=== PATIENT | male | born 1995 | race Caucasian/White ===

== ENCOUNTER 2021-01-22 10:14 | Emergency (ER) | payer OTHER, SELFPAY ==
[2021-01-22 10:14] VITALS: BP 131/93; BP 135/89; PULSE 64; PULSE 69; RESP 12; RESP 23; TEMP 37.2; O2SAT 98; BMI 31.2
--- NOTE | 2021-01-22 10:15 | NURSING ---
10 MIN ETA. [facility] IS COMING GROUND WITH A SQUAD
--- NOTE | 2021-01-22 10:16 | NURSING ---
ACCEPTED AT [facility] BY DR LELO GARCIA
[2021-01-22] MEDS: fentaNYL 100 MCG/2 ML Ampul 50 MCG IV (10:31)
--- NOTE | 2021-01-22 10:36 | EX.ED.GENINJ ---
HPI History of Present Illness Chief Complaint: Trauma Narrative Narrative: Patient presents after falling 16 to 20 feet onto concrete. 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 He fell face forward and onto his right side onto concrete. No reported loss of consciousness. He sustained injury to his right wrist, right thigh, and face. In route, he received a total of 100 mcg of fentanyl for pain. EMS also noted blood coming from both of his ears, and missing teeth, but he has partial dentures. [facility] Medical History History of fracture of clavicle Home Medications NK 01/22/21 [History Last Taken Unknown] Allergy/AdvReac Type Severity Reaction Status Date / Time No Known Allergies Allergy Verified 01/22/21 10:19 Social History Smoking Status: Unknown if ever smoked ROS ROS ED ROS Narrative Constitutional: No fever, no chills. HEENT: No sore throat. No neck pain. No loss of vision. No rhinorrhea. Decreased hearing. Chin pain. Cardiovascular: No chest pain. No palpitations. No pedal edema. Respiratory: No cough, no shortness of breath. Abdominal: No abdominal pain. No nausea. No vomiting. Genitourinary: No dysuria. No hematuria. Musculoskeletal: Right wrist pain. Right thigh pain. Neurologic: No headaches. No dizziness. No lightheadedness. Skin: No rash. No change in color. Psychiatric: No depression. No anxiety. EXAM Physical Exam Narrative Exam Narrative: Afebrile. Vital signs noted. GCS 15. ABCs intact. HEENT: Normocephalic. Atraumatic. PERRL, EOMI. Neck soft and supple. No point tenderness or step off. Left TM partially obscured by blood, right TM completely obscured by blood. No step-off on neck. +2 cm chin laceration. Cardiovascular: Regular rate and rhythm. No murmurs, rubs, or gallops appreciated. Respiratory: No tachypnea. Lungs clear to auscultation bilaterally. Gastrointestinal: Abdomen soft, nontender, with normoactive bowel sounds. No rebound or guarding. Neurological: Awake. Alert. Mentating properly. Nonfocal, nonlateralizing. Skin: No rash. Normal color. No pallor. Musculoskeletal: No pedal edema. Right upper extremity in Dylan splint, good capillary refill. Palpable radial pulse. Noted deformity right thigh. Right lower extremity held in external rotation. Palpable dorsalis pedis pulse. Good capillary refill. Const Vital Signs: 01/22/21 10:14 01/22/21 10:25 Temperature 98.9 F Temperature Source Temporal Pulse Rate 69 Respiratory Rate 23 H Respiratory Effort Normal Respiratory Depth Normal Respiratory Pattern Normal Blood Pressure 135/89 H Blood Pressure Mean 104 Pulse Ox 98 Oxygen Delivery Method Room Air MDM MDM MDM Narrative Medical decision making narrative: Patient was triaged, seen and examined. He has already been accepted at [facility] by Dr. Guerrero in the ER. I was able to speak to Dr. Vences. He will be transferred there immediately for trauma services to the ED. He was administered 50 mcg of fentanyl for analgesia here. Disposition is transferred in stable condition. Discharge Plan Triage Chief Complaint: Trauma ED Provider: Lorenzo Browning Dx/Rx/DC Orders Clinical Impression: Multiple trauma, Femur fracture, right, Fracture of wrist, Chin laceration, Head injury Prescriptions: No Action NK RF: 0 Primary Care Provider: Care Physician,No Primary Referrals: Care Physician,No Primary [Primary Care Provider] - Disposition Disposition: Acute Care Hospital Discharge Location: [facility]
--- NOTE | 2021-01-22 10:58 | CM.ED ---
SW Note Referral Source: Case Find due to Trauma Referral Reason: Trauma SW met with Nelson Cherry, patient's father. He reports he works close to the patient's work and was advised that patient had fallen 16 feet. Nelson called his and patient's and they were on the way to [facility] ED. SW advised that patient is being transferred to [facility]. SW spoke to [facility] who advised that patient only can be transported and NO other family. SW encouraged patient's father to contact ride regarding him accompanying them to [facility]. SW provided patient's father with [facility] map. SW provided emotional support to patient's father and family. SW remains available if needs arise. Plan: Transfer to [facility] Bridgette GARCIA
[2021-01-22 11:01] VITALS: BP 119/74; PULSE 64; RESP 18; O2SAT 100
== END 2021-01-22 11:03 | disposition short-term general hospital (02) ==
PROVIDERS: Emergency Provider Emergency Medicine
DX: S72.91XA Unspecified fracture of right femur, initial encounter for closed fracture (principal); S62.101A Fracture of unspecified carpal bone, right wrist, initial encounter for closed fracture; S01.81XA Laceration without foreign body of other part of head, initial encounter; W17.89XA Other fall from one level to another, initial encounter
CPT/HCPCS: 96374; 99285; J7030; A4216

== ENCOUNTER 2024-11-05 14:05 | Emergency (ER) | payer OTHER, SELFPAY ==
[2024-11-05 14:06] VITALS: BP 134/85; PULSE 82; RESP 18; TEMP 37.2; O2SAT 98; BMI 27.1
[2024-11-05 14:10] VITALS: BP 134/85; PULSE 82; RESP 18; TEMP 37.2; O2SAT 98
--- NOTE | 2024-11-05 14:16 | EDS_ITS ---
HPI History of Present Illness Chief Complaint: Wound Check Detail of Chief Complaint: Wound over MCP joint dorsal surface right thumb, concern for infection Informant: patient Onset/Context/Timing Onset: - (Was carving a deer on Wednesday. Has small wound to dorsal surface right hand MCP joint of the right thumb) Context: Gradual Onset Timing: Continuous Quality: Redness and red streak to the proximal medial Location: right arm, from the MCP joint to the medial right arm Current Severity: Mild Maximum Severity: Mild Worsened by: Wound Relieved by: Nothing Associated Symptoms Associated Symptoms: None Narrative Narrative: Patient is a 29-year-old [id number] male. He found a 8 point varner. He went to remove the head. He sustained a laceration dorsal surface right thumb over the MCP joint. He denies fever, chills or night sweats. He denies paresthesia or anesthesia. He has no history rheumatic fever, heart murmur murmur or mitral valve prolapse. He is on no immunosuppressive medication. [id number], he is on no medicines and has no allergies to antibiotics. Prior similar symptoms: No Recent Illness/Hospitalization: No PFSH PFS Medical History History of fracture of clavicle Home Medications ?Medication ?Instructions ?Recorded ?Last Taken ?Type clindamycin HCl 300 mg capsule 300 mg PO Q6H #28 CAPSU LES 11/05/24 Unknown Rx (Cleocin HCl) Allergy/AdvReac Type Severity Reaction Status Date / Time No Known Allergies Allergy Verified 11/05/24 14:20 Surgical History no surgical history no surgical history Social History Smoking Status: Unknown if ever smoked ROS ROS ED Constitutional Constitutional ED: Denies chills, fever(s), subjective or sweats Cardiovascular Cardiovascular: Denies chest pain or palpitations Respiratory/Chest Respiratory/Chest: Denies cough, dyspnea or dyspnea on exertion Gastrointestinal Gastrointestinal: Denies nausea or vomiting Musculoskeletal Musculoskeletal: Denies arthralgias, myalgias or neck pain Integumentary Reports rash Neurologic Neurologic: Denies paresthesias or weakness Hematologic/Lymphatic Hematologic/Lymphatic: Denies easy bruising EXAM Physical Exam Const Vital Signs: 11/05/24 14:06 11/05/24 14:10 Temperature 99 F 99 F Temperature Source Oral Oral Pulse Rate 82 82 Respiratory Rate 18 18 Blood Pressure 134/85 H 134/85 H Blood Pressure Mean 101 101 Pulse Ox 98 98 Oxygen Delivery Method Room Air Room Air Positive well nourished and well developed Constitutional Narrative: Pleasant 29-year-old male appears in no distress. Blood pressure slightly elevated. General Appearance ED: well developed; Negative for cyanotic or diaphoretic HEENT HEENT Narrative: Head is atraumatic and normocephalic. Ears normal. Nares patent. Eyes PERRL and EOMs intact bilaterally General Eye ED: Negative for pale conjunctiva or scleral icterus Neck no lymphadenopathy, supple and no JVD Resp normal respiratory effort and clear to auscultation bilaterally Cardio regular rate, regular rhythm, S1 normal heart sound, S2 normal heart sound and no murmurs Extremity Negative for normal to inspection Extremity Narrative: Patient has a 1 cm superficial laceration dorsal surface right thumb over the MCP joint. There is a nickel size area of erythema and warmth. There is no fluctuance. Unable to express any purulent material from the wound. There is an lymphangitic streak at is on the radial volar side of the forearm and when it approaches the antecubital fossa there are 3 streaks that are noted. The streaks do not go to the axilla. There is no axillary lymphadenopathy. Median, radial and ulnar function intact. Neuro oriented x3 and CN's II-XII intact bilaterally Sensorium / Orientation: alert Psych mental status grossly normal Skin Skin Narrative: Cellulitis and lymphangitis as previously described. MDM MDM MDM Narrative Medical decision making narrative: Suspect this is a streptococcal infection. Will obtain CBC and BMP to assess white count differential and BMP to assess glucose and renal function. Suspect patient will be a candidate for outpatient treatment unless his laboratory studies return abnormal. History & Record Review Additional record(s) reviewed:: Prior outpatient record (May 2023 outpatient note authored by Nirav Murry. Patient was seen for a sprain left foot. There are no other records available.) Lab Data Attestation: I reviewed the patient's lab results. Lab results narrative: CBC is normal. Comprehensive metabolic panel with slight elevation of glucose 106. This is unremarkable. Labs: Laboratory Results - last 24 hr 11/05/24 14:23 WBC 10.1 RBC 5.07 Hgb 15.4 Hct 44.0 MCV 86.8 MCH 30.4 MCHC 35.0 RDW Std Deviation 38.0 RDW Coeff of Yisel 11.9 Plt Count 123 L MPV 9.9 Immature Gran % (Auto) 0.500 Neut % (Auto) 74.2 H Lymph % (Auto) 12.5 L [place] % (Auto) 8.7 Eos % (Auto) 3.5 Baso % (Auto) 0.6 Absolute Neuts (auto) 7.5 Absolute Lymphs (auto) 1.26 Nucleated RBC % 0 Sodium 140 Potassium 3.9 Chloride 103 Carbon Dioxide 25.0 Anion Gap 11 BUN 16 Creatinine 0.96 Estim Creat Clear Calc 126.00 Est GFR (MDRD) Non-Af 108 BUN/Creatinine Ratio 16.5 Glucose 106 H Calcium 9.2 Total Bilirubin 0.86 AST 21 ALT 22 Alkaline Phosphatase 71 Total Protein 7.0 Albumin 4.4 Globulin 2.6 Albumin/Globulin Ratio 1.7 Treatment and Re-Evaluation :: Since patient's vitals are unremarkable white count is normal there is no evidence of renal dysfunction will place on antibiotics and patient is approp riate for outpatient treatment follow-up Discharge Plan Triage Chief Complaint: Wound Check ED Provider: Leo Deluca Dx/Rx/DC Orders Clinical Impression: Cellulitis of hand, left, Acute lymphangitis of left upper limb, Elevated blood-pressure reading without diagnosis of hypertension Instructions: ED Cellulitis, ED Hypertension, To Be Confirmed Prescriptions: New clindamycin HCl [Cleocin HCl] 300 mg capsule 300 mg PO Q6H Qty: 28 0RF Primary Care Provider: Carol Santana Referrals: Care Physician,No Primary [Non-Staff, Medical] Carol Santana PA [Primary Care Provider, Family Practice] - 2 Days for wound check Activity Restrictions/Additional Instructions: 1. Take your first dose of antibiotic this evening before bedtime. 2. If you develop temperature greater than 100, shaking chills or drainage from the wound return to the emergency department 3. Your blood pressure is slightly elevated. You should have this rechecked within a week or 2 Print Language: Tamazight Disposition Disposition: Home, Self Care
[2024-11-05] MEDS: Ampicillin/Sulbactam 3 GM in 0.9% Normal Saline (100mL MB+) 100 ML IV (14:31)
[2024-11-05 15:00] LABS: Hematocrit 44.0 % (40-54); Hemoglobin 15.4 g/dL (13.0-16.5); Immature Granulocytes Count 0.050 X10^3/uL (0.0-0.0); Mean Corp Hgb Conc 35.0 g/dL (32-36); Mean Corpuscular Volume 86.8 fL (80-94); Mean Platelet Vol. 9.9 fl (6.2-12.0); NRBC Flagged by Analyzer 0 % (0-5); Platelet Count 123 K/mm3 (150-450); RBC Distribution Width CV 11.9 % (11.6-14.6); RBC Distribution Width SD 38.0 fl (35.1-43.9); Red Blood Count 5.07 M/mm3 (4.6-6.2); White Blood Count 10.1 K/mm3 (4.4-11.0)
[2024-11-05 15:54] LABS: AST(SGOT) 21 U/L (<=37); Alanine Aminotransfer ALT/SGPT 22 U/L (<=46); Albumin, Serum 4.4 g/dL (3.5-5.0); Alkaline Phosphatase 71 U/L (40-129); Anion Gap 11 (5-15); BUN 16 mg/dL (4-19); BUN/Creat Ratio 16.5 RATIO (10-20); Calcium,Total 9.2 mg/dL (7.6-11.0); Carbon Dioxide 25.0 mmol/L (21.0-32.0); Chloride 103 mmol/L (98-108); Estimated Creatinine Clearance 126.00 ml/min (50-250); Globulin 2.6 g/dL (2.2-4.2); Glucose 106 mg/dL (70-99); Potassium 3.9 mmol/L (3.3-5.1)
[2024-11-05 16:17] VITALS: BP 116/68; PULSE 69; RESP 16; RESP 18; TEMP 36.7; O2SAT 97
--- OUTSIDE RECORDS SUMMARY | 2024-11-05 16:48 | XMS RPT_ITS | CCD ---
Author Organization [facility] Care Team Providers Care Medical Director Occupational Health Name Role Phone Unavailable Primary Care Provider FAVIOLA Bergeron Attending Unavailable FAVIOLA PALMER Referring Unavailable FAVIOLA PALMER Referring Unavailable FAVIOLA PALMER Attending Unavailable FAVIOLA PALMER Attending Unavailable FAVIOLA PALMER Referring Unavailable FAVIOLA PALMER Admitting Unavailable FAVIOLA PALMER Attending Unavailable FAVIOLA PALMER Referring Unavailable FAVIOLA PALMER Attending Unavailable MARIAH FAIRBANKS Referring Unavailable FAVIOLA PALMER Attending Unavailable FAVIOLA PALMER Referring Unavailable FAVIOLA PALMER Attending Unavailable FAVIOLA PALMER Attending Unavailable Unavailable Primary Care Provider UnavailMELITON Garcia Attending Unavailable HÉCTOR ARROYO Referring Unavailable HÉCTOR ARROYO Referring Unavailable Medications Current Medications Medication Drug Class(es) Dates Sig (Normalized) Sig (Original) doxycycline hyclate 100 mg oral capsule (2 sources) Tetracycline-clas s Drug Start: 02-12-2022 End: 02-26-2022 take 1 capsule by mouth twice daily doxycycline hyclate (VIBRAMYCIN) 100 mg capsule Take 1 capsule by mouth twice daily for 14 days. 28 capsule 0 02/12/2022 02/26/2022 Active Start: 10-28-2021 End: 11-07-2021 take 1 tablet by mouth twice daily doxycycline (VIBRA-TABS) 100 mg tablet Take 1 tablet by mouth twice daily for 10 days. 20 tablet 0 10/28/2021 11/07/2021 Active Comment on above: Take 1 tablet by carissa th twice daily for 10 days. Take 1 capsule by mo [facility] twice daily for 14 days. predniSONE 20 mg oral tablet (1 source) Start: 05-23-2024 End: 06-07-2024 take 1 tablet by mouth twice daily predniSONE (DELTASONE) 20 mg tablet Take 1 tablet by mouth two times a day for 15 days. 10 tablet 2 05/23/2024 06/07/2024 Active Completed/Discontinued Medications Medication Drug Class(es) Dates Sig (Normalized) Sig (Original) acetaminophen 325 mg / oxyCODONE hydrochloride 5 mg oral tablet (1 source) Opioid Agonist Start: 02-12-2022 End: 02-15-2022 take 1 tablet by mouth every six hours as needed for pain oxyCODONE-acetamin ophen (PERCOCET) 5-325 mg tablet Indications: Hardware complicating wound infection, initial encounter ([facility]) Take 1 tablet by mouth every 6 hours as needed for pain for up to 3 days. 12 tablet 0 02/12/2022 02/15/2022 Comment on above: Take 1 tablet by carissa th every 6 hours as needed for pain for up to 3 days. aspirin 325 mg oral tablet (7 sources) Platelet Aggregation Inhibitor, Nonsteroidal Anti-inflammatory Drug Start: 01-25-2021 End: 02-02-2022 take 1 tablet by mouth twice daily aspirin 325 mg tablet Take 1 tablet by mouth twice daily for 21 days. 42 tablet 0 01/25/2021 02/02/2022 Discontinued (Patient chooses alternative therapy) Comment on above: Take 1 tablet by carissa th twice daily for 21 days. Walker misc (16 sources) Start: 01-25-2021 Walker misc 1 wheeled walker with bilateral elbow platforms 1 Each 0 01/25/2021 Active Start: 01-24-2021 Walker misc 1 wheeled walker with bilateral elbow platforms 1 Each 0 01/24/2021 Active Comment on above: 1 wheeled walker wit h bilateral elbow platforms Problems Active Problems Problem Classification Problem Date Documented Da te Episodic/Chronic Complication of device; implant or graft (4 sources) Bone fixation device infection; Translations: [Infection and inflammatory reaction due to other internal orthopedic prosthetic devices, implants and grafts, initial encounter] Onset: 02-02-2022 Episodic Osteoarthritis (2 sources) Arthritis of knee; Translations: [Unilateral primary osteoarthritis, right knee] 05-23-2024 Chronic Other non-traumatic joint disorders (4 sources) Pain in right knee; Translations: [Pain in joint, lower leg] Onset: 05-23-2024 05-18-2024 Episodic Other non-traumatic joint disorders (1 source) Effusion of right knee joint; Translations: [Effusion, right knee] 05-23-2024 Episodic Substance-related disorders (15 sources) Nicotine dependence; Translations: [Nicotine dependence, unspecified, uncomplicated] Onset: 01-23-2021 01-25-2021 Chronic Past or Other Problems Problem Classification Problem Date Documented Date Episodic/Chronic E Codes: Fall (6 sources) Injury of unknown intent due to fall from height; Translations: [Other fall from one level to another, initial encounter] Onset: 01-22-2021 Resolved: 01-25-2021 01-25-2021 Episodic Fracture of lower limb (16 sources) Closed fracture of shaft of femur; Translations: [Other fracture of shaft of right femur, subsequent encounter for closed fracture with routine healing] Onset: 01-22-2021 Resolved: 01-25-2021 Episodic Fracture of upper limb (10 sources) Open fracture of distal end of radius; Translations: [Other intraarticular fracture of lower end of right radius, subsequent encounter for open fracture type I or II with routine healing] Onset: 01-22-2021 Resolved: 01-25-2021 Episodic Joint disorders and dislocations; trauma-related (3 sources) Dislocation of temporomandibular joint; Translations: [Dislocation of jaw, unspecified side, initial encounter] Onset: 01-22-2021 Resolved: 03-05-2021 03-05-2021 Episodic Open wounds of head; neck; and trunk (3 sources) Facial laceration ; Translations: [Laceration without foreign body of other part of head, initial encounter] Onset: 01-22-2021 Resolved: 01-25-2021 01-25-2021 Episodic Other ear and sense organ disorders (3 sources) Blood in ear canal; Translations: [Otorrhagia, bilateral] Onset: 01-22-2021 Resolved: 01-25-2021 01-25-2021 Episodic Skull and face fractures (20 sources) Closed fracture of condylar process of right mandible; Translations: [Fracture of condylar process of right mandible, initial encounter for closed fracture] Onset: 01-22-2021 01-25-2021 Episodic Unclassified (3 sources) Acute pain of right knee 05-18-2024 Results Test Name Value Interpretation Reference Range Facil ity CNOVon 05-23-2024 CNOV Office Visit (FRWS ) MILKA ZAMUDIO ([id number]) 1995 M Date Time Provider Department 05/23/24 1:30 PM [facility] During your visit today, we recorded the following information about you: Funmi Saavedra MA 05/23/2024 1:47 PM Signed Patient presents with: Right Knee Pain: Referred by Héctor COLEMAN ROOMING INTAKE FLOWSHEET DATA Pain Pain Level: 1 Pain Location: Knee-Right Description: Dull Duration Amount of Time: 5 Duration Units: Days Frequency: Intermittent Intervention/Comfort measure: Medication Meliton Carlos V, DO 05/23/2024 1:47 PM Signed Subjective The patient is a 29-year-old male presenting for right knee pain and swelling. Right Knee Pain and Swelling: - Reports swelling and pain in the right knee, limiting flexion to approximately 90 degrees. - Noticed swelling after kneeling on the right knee during work on ; typically bears weight on the left knee. - Describes a sensation of pressure when attempting to bend the knee. - Denies pain with extension or varus/valgus stress. - Denies pain over the anterior joint line with palpation. - Pain and a pop sensation occur when flexing the knee to 90 degrees. - Has a knee brace used post-injury to keep the leg straight. 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 Right Knee Injury: - Sustained a fall from 16 feet onto concrete on 01/22/2022, resulting in a shattered patella (in 7 pieces), fractured femur, wrist, and jaw. - Treated by Dr. Palmer in [place]. Musculoskeletal: (+) right knee swelling, (+) right knee pain Objective There were no vitals taken for this visit. General: No acute distress. MSK/Ext: Right knee effusion, loss of patellar definition, scar present, no pain with extension, varus or valgus stress, or anterior joint line palpation; pain and crepitus at 90 degrees of flexion. Imaging - X-ray of the Right Knee: Hardware in place and intact; joint space is well maintained. Arthritic changes noted under the patella consistent with patellofemoral arthritis. 1. Acute pain of right knee (M25.561) 2. Effusion of right knee (M25.461) 3. Patellofemoral arthritis of right knee (M17.11) 4. Post-traumatic osteoarthritis of right knee (M17.31) - Right knee effusion with limited flexion to 90 degrees and palpable crepitus on exam. - Recent x-rays reviewed, showing well-positioned hardware and preserved joint space, but significant arthritic changes under the patella. - Discussed pathophysiology of effusion and arthritis, including synovial fluid overproduction due to joint irritation. - Prescribed prednisone 20 mg orally twice daily for 5 days to reduce inflammation and pain. - Provided a compression wrap for immediate use and recommended purchasing a knee compression sleeve for ongoing support during activities. - Advised monitoring for signs of infection, including erythema, increased warmth, and severe pain, and to seek immediate medical attention if these occur. - Patient understands and agrees with the treatment plan. Attestation The patient consented to the use of Continuent software for draft documentation of the visit consistent with [facility]?s Notice of Privacy Practices. Referring Provider: HÉCTOR ARROYO [[id number]] Allergies As of Date: 05/23/2024 (No Known Allergies) Date Reviewed: 05/23/2024 Reviewed by: Funmi Saavedra MA - Fully Assessed Reason for Visit: Right Knee Pain [1209] Cmt: Referred by Héctor Arroyo Primary Visit Diagnosis:Effusion of right knee [M25.461] Other Visit Diagnoses:Acute pain of right knee [M25.561] Patellofemoral arthritis of right knee [M17.11] Post-traumatic osteoarthritis of right knee [M17.31] Order(s):CONSULT PANEL TO ORTHOPAEDICS [[id number]] Order #: [id number]: 1 predniSONE (DELTASONE) 20 mg tabletTake 1 tablet by mouth two times a day for 15 days.Disp: 10 tabletRfl: 2 Prescriptions as of 05/23/2024 - predniSONE (DELTASONE) 20 mg tablet Take 1 tablet by mouth two times a day for 15 days. Facility-Administered Medications as of 05/23/2024 - midazolam (PF) injection (VERSED) - fentaNYL 50 mcg/mL injection (SUBLIMAZE) Problem List As Of Date 05/23/2024 Noted Resolved Injury resulting from fall from height [W17.89X*01/22/2021 01/25/2021 Closed fracture of right condylar process of ma*01/22/2021 Closed fracture of maxillary sinus (HCC) [S02.4*01/22/2021 Closed dislocation of mandible [S03.00XA] 01/22/2021 03/05/2021 Closed displaced comminuted fracture of shaft o*01/22/2021 01/25/2021 Closed comminuted fracture of right patella [S8*01/22/2021 01/25/2021 Open fracture of distal end of radius [S52.509B]01/22/2021 01/25/2021 Closed nondisplaced fracture of styloid process*01/22/2021 01/25/2021 Blood in ear canal, bilateral [H92.23] 01/22/2021 01/25/2021 Facial laceration [S01.81XA] 01/22/2021 01/25/2021 Fall [W19.XXXA] 01/23/20 (more content not included)... Normal [facility] CNOVon 05-18-2024 CNOV Office Visit (WSTR ) MILKA ZAMUDIO ([id number]) 1995 M Date Time Provider Department 05/18/24 7:30 PM [facility] During your visit today, we recorded the following information about you: Pulse Respiration Blood pressure Weight 98/minute 16/minute 118/70 91.8 kg Héctor Arroyo APRN.CNP 05/18/2024 8:05 PM Signed This note was created using NoteWriter. Subjective Milka Scottim is a 29 year old male. HPI Little over 3 years ago patient apparently fell about 16 feet shattering his right patella breaking other multiple bones. 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 As the day progressed he began to notice increasing pain throughout the right knee. Patient otherwise denies any strain or trauma. He does note some swelling around the right knee. Review of Systems As above Objective BP 118/70 Pulse 98 Resp 16 Wt 91.8 kg (202 lb 6.1 oz) BMI 27.45 kg/m? Physical Exam Vitals and nursing note reviewed. Constitutional: General: He is not in acute distress. Appearance: Normal appearance. He is not ill-appearing. HENT: Head: Normocephalic. Pulmonary: Effort: Pulmonary effort is normal. Musculoskeletal: Cervical back: Normal range of motion. Comments: Limited range of motion of right knee due to pain. Diffuse swelling and pain noted around the right knee. No obvious deformities noted Skin: General: Skin is warm and dry. Neurological: General: No focal deficit present. Mental Status: He is alert. Psychiatric: Mood and Affect: Mood normal. Behavior: Behavior normal. Assessment and Plan ASSESSMENT/PLAN: 1. Acute pain of right knee - ICD9: 719.46, ICD10: M25.561 Initial read of the x-ray by myself shows no acute abnormalities. Patient will use his home knee brace as needed for comfort. He was given follow-up with orthopedics if symptoms do not improve. - XR KNEE GENERAL 4V AP BOTH/PA BOTH/LAT/MERC RIGHT - CONSULT PANEL TO ORTHOPAEDICS Héctor Arroyo APRN.SENIOR DATA ANALYST Allergies As of Date: 05/18/2024 (No Known Allergies) Date Reviewed: 05/18/2024 Reviewed by: Héctor Arroyo APRN.SENIOR DATA ANALYST - Fully Assessed Reason for Visit: knee pain and swelling, r [Other] Primary Visit Diagnosis:Acute pain of right knee [M25.561] Order(s):XR KNEE GENERAL 4V AP BOTH/PA BOTH/LAT/MERC RIGHT [[id number]] Order #: [id number] FUTURE CONSULT PANEL TO ORTHOPAEDICS [[id number]] Order #: [id number]: 1 FUTURE Facility-Administered Medications as of 05/18/2024 - midazolam (PF) injection (VERSED) - fentaNYL 50 mcg/mL injection (SUBLIMAZE) Problem List As Of Date 05/18/2024 Noted Resolved Injury resulting from fall from height [W17.89X*01/22/2021 01/25/2021 Closed fracture of right condylar process of ma*01/22/2021 Closed fracture of maxillary sinus (HCC) [S02.4*01/22/2021 Closed dislocation of mandible [S03.00XA] 01/22/2021 03/05/2021 Closed displaced comminuted fracture of shaft o*01/22/2021 01/25/2021 Closed comminuted fracture of right patella [S8*01/22/2021 01/25/2021 Open fracture of distal end of radius [S52.509B]01/22/2021 01/25/2021 Closed nondisplaced fracture of styloid process*01/22/2021 01/25/2021 Blood in ear canal, bilateral [H92.23] 01/22/2021 01/25/2021 Facial laceration [S01.81XA] 01/22/2021 01/25/2021 Fall [W19.XXXA] 01/22/2021 01/25/2021 Nicotine use disorder, F17.2 [F17.200] 01/23/2021 Encounter Status:Closed by HÉCTOR ARROYO on 05/18/24 Normal [facility] XR KNEE 4V AP/PA BOTH+LAT/ME R RTon 05-18-2024 XR KNEE 4V AP/PA BOTH+LAT/SAÚL RT * * *Final Report* * * DATE OF EXAM: May 18 2024 7:57PM WOX 5203 - XR KNEE 4V AP/PA BOTH+LAT/SAÚL RT / PROCEDURE REASON: Acute pain of right knee * * * * Physician Interpretation * * * * BILATERAL KNEE X-RAY SERIES HISTORY: Acute pain of right knee TECHNIQUE: 4 views of the right knee, 3 views of the left knee COMPARISON: 02/04/2021 RESULT: No acute fracture, dislocation or destructive changes. There are some new mild degenerative changes of the patellofemoral joint. Remote right patellar fracture. Interval removal of the hardware in the patella. Partially imaged intramedullary priyanka and screw fixation of a remote distal right femoral diaphyseal fracture. No hardware complication in the visualized hardware. A few tiny punctate metallic densities project over the right infrapatellar soft tissues. Moderate right knee joint effusion. IMPRESSION: No acute fracture or dislocation. Alarm Operator: [facility] Transcribe Date/Time: May 18 2024 9:19P Dictated by : DONNA ASKEW MD This examination was interpreted and the report reviewed and electronically signed by: DONNA ASKEW MD on May 18 2024 9:23PM EST [id number] Normal [facility] XR Knee - right 4 Viewson IMPRESSION: No acute fracture or dislocation. Alarm Operator: [facility] Transcribe Date/Time: May 18 2024 9:19P Dictated by : DONNA ASKEW MD This examination was interpreted and the report reviewed and electronically signed by: DONNA ASKEW MD on May 18 2024 9:23PM EST DIVISION OF RADIOLOGY * * *Final Report* * * DATE OF EXAM: May 18 2024 7:57PM WOX 5203 - XR KNEE 4V AP/PA BOTH+LAT/SAÚL RT / PROCEDURE REASON: Acute pain of right knee * * * * Physician Interpretation * * * * BILATERAL KNEE X-RAY SERIES HISTORY: Acute pain of right knee TECHNIQUE: 4 views of the right knee, 3 views of the left knee COMPARISON: 02/04/2021 RESULT: No acute fracture, dislocation or destructive changes. There are some new mild degenerative changes of the patellofemoral joint. Remote right patellar fracture. Interval removal of the hardware in the patella. Partially imaged intramedullary priyanka and screw fixation of a remote distal right femoral diaphyseal fracture. No hardware complication in the visualized hardware. A few tiny punctate metallic densities project over the right infrapatellar soft tissues. Moderate right knee joint effusion. DIVISION OF RADIOLOGY Provider, [facility] - 05/18/2024 * * *Final Report* * * DATE OF EXAM: May 18 2024 7:57PM WOX 5203 - XR KNEE 4V AP/PA BOTH+LAT/SAÚL RT / PROCEDURE REASON: Acute pain of right knee * * * * Physician Interpretation * * * * BILATERAL KNEE X-RAY SERIES HISTORY: Acute pain of right knee TECHNIQUE: 4 views of the right knee, 3 views of the left knee COMPARISON: 02/04/2021 RESULT: No acute fracture, dislocation or destructive changes. There are some new mild degenerative changes of the patellofemoral joint. Remote right patellar fracture. Interval removal of the hardware in the patella. Partially imaged intramedullary priyanka and screw fixation of a remote distal right femoral diaphyseal fracture. No hardware complication in the visualized hardware. A few tiny punctate metallic densities project over the right infrapatellar soft tissues. Moderate right knee joint effusion. IMPRESSION IMPRESSION: No acute fracture or dislocation. Alarm Operator: [facility] Transcribe Date/Time: May 18 2024 9:19P Dictated by : DONNA ASKEW MD This examination was interpreted and the report reviewed and electronically signed by: DONNA ASKEW MD on May 18 2024 9:23PM EST [facility] Radiology Study observation (narrative) [facility] XR Knee - right 4 ViewsOrder ed By: Ccf Provider on 05-18-2024 [facility] CNOVon 02-27-2022 CNOV Office Visit (AGHWG1 ) MILKA ZAMUDIO ([id number]) 1995 M Date Time Provider Department 02/27/22 11:30 AM FAVIOLA PALMER AGHWG1 During your visit today, we recorded the following information about you: Respiration Weight Height 18/minute 95.3 kg 1.829 m Faviola Palmer MD 02/27/2022 12:06 PM Signed Subjective: Patient returns today follow-up guarding his heart removal from his right patella. Overall doing well. States his knee feels better. Objective: Examination right lower extremity shows wound to be healing well. No signs of infection. Assessment: #1 right patella fracture status post hardware removal. Plan at this time doing well. Sutures were removed. No activity restrictions. I will see him back on as-needed basis. If is any questions or concerns in the future, he will contact the office. His questions were answered. Referring Provider: SELF [200] Allergies As of Date: 02/27/2022 (No Known Allergies) Date Reviewed: 02/27/2022 Reviewed by: Faviola Palmer MD - Fully Assessed Reason for Visit: Follow Up [171] Post Op [174] Primary Visit Diagnosis:Other closed fracture of right patella with routine healing, subsequent encounter [S82.091D] Facility-Administered Medications as of 02/27/2022 - midazolam (PF) injection (VERSED) - fentaNYL 50 mcg/mL injection (SUBLIMAZE) Problem List As Of Date 02/27/2022 Noted Resolved Injury resulting from fall from height [W17.89X*01/22/2021 01/25/2021 Closed fracture of right condylar process of ma*01/22/2021 Closed fracture of maxillary sinus (HCC) [S02.4*01/22/2021 Closed dislocation of mandible [S03.00XA] 01/22/2021 03/05/2021 Closed displaced comminuted fracture of shaft o*01/22/2021 01/25/2021 Closed comminuted fracture of right patella [S8*01/22/2021 01/25/2021 Open fracture of distal end of radius [S52.509B]01/22/2021 01/25/2021 Closed nondisplaced fracture of styloid process*01/22/2021 01/25/2021 Blood in ear canal, bilateral [H92.23] 01/22/2021 01/25/2021 Facial laceration [S01.81XA] 01/22/2021 01/25/2021 Fall [W19.XXXA] 01/22/2021 01/25/2021 Nicotine use disorder, F17.2 [F17.200] 01/23/2021 Disposition: Return if symptoms worsen or fail to improve. Follow-up and Disposition History for Encounter Date Provider Department Center 02/27/2022 [id number] PALMER AGHWG1 [facility] Encounter Status:Closed by FAVIOLA PALMER on 02/27/22 [facility] Norberto 02-13-2022 CNPN Telephone (AGPOB1) MILKA ZAMUDIO ([id number]) 1995 M Date Time Provider Department 02/13/22 FAVIOLA PALMER AGPOB1 During your visit today, we recorded the following information about you: Avril Layne 02/13/2022 10:38 AM Signed Called patient to reschedule 02/24/2022 post op appointment to 02/27/2022. Left a message. Avril Layne February 13, 2022 10:37 AM Allergies As of Date: 02/13/2022 (No Known Allergies) Date Reviewed: 02/12/2022 Reviewed by: Noemy Rand RN - Fully Assessed Reason for Visit: Appointment [186] Prescriptions as of 02/13/2022 - oxyCODONE-acetaminophen (PERCOCET) 5-325 mg tablet Take 1 tablet by mouth every 6 hours as needed for pain for up to 3 days. - doxycycline hyclate (VIBRAMYCIN) 100 mg capsule Take 1 capsule by mouth twice daily for 14 days. Facility-Administered Medications as of 02/13/2022 - midazolam (PF) injection (VERSED) - fentaNYL 50 mcg/mL injection (SUBLIMAZE) Problem List As Of Date 02/13/2022 Noted Resolved Injury resulting from fall from height [W17.89X*01/22/2021 01/25/2021 Closed fracture of right condylar process of ma*01/22/2021 Closed fracture of maxillary sinus (HCC) [S02.4*01/22/2021 Closed dislocation of mandible [S03.00XA] 01/22/2021 03/05/2021 Closed displaced comminuted fracture of shaft o*01/22/2021 01/25/2021 Closed comminuted fracture of right patella [S8*01/22/2021 01/25/2021 Open fracture of distal end of radius [S52.509B]01/22/2021 01/25/2021 Closed nondisplaced fracture of styloid process*01/22/2021 01/25/2021 Blood in ear canal, bilateral [H92.23] 01/22/2021 01/25/2021 Facial laceration [S01.81XA] 01/22/2021 01/25/2021 Fall [W19.XXXA] 01/22/2021 01/25/2021 Nicotine use disorder, F17.2 [F17.200] 01/23/2021 Encounter Status:Closed by ROVERTO, AVRIL on 02/13/22 [facility] ANES POSTPROC EVALon 022 ANES POSTPROC EVAL HNO ID: [id number] Author: Bella Torres MD Service: ? Author Type: Anesthesiologist Type: Anesthesia Postprocedure Evaluation Filed: 02/12/2022 12:33 PM Note Text: POST ANESTHESIA EVALUATION NOTE : 1995 Procedure Summary Date: 02/12/22 Room / Location: [place] [address] [place] [address] OR Anesthesia Start: 756 Anesthesia Stop: 906 Procedure: INCISION, DEEP, WITH OPENING OF BONE CORTEX, FEMUR OR KNEE (Right: Knee) Diagnosis: 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, initial encounter (HCC) (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, initial encounter (HCC) [T84.7XXA]) Surgeons: Faviola Palmer MD Responsible Provider: Bella Torres MD Anesthesia Type: general ASA Status: 2 Anesthesia Type: general Airway Type: LMA Last Vitals Vitals Value Taken Time BP 112/79 02/12/22 1045 Temp 36.2 ?C (97.2 ?F) 02/12/22 1030 HR SpO2 54 02/12/22 1057 Resp 14 02/12/22 1057 SpO2 97 % 02/12/22 1057 Vitals shown include unvalidated device data. Post Anesthesia Patient Status Patient Evaluation: PACU. PACU/ICU Patient Condition: stable. Anticipated Disposition: phase 2 then home. Neurological Status: aware and responsive. Pulmonary Status: breathing comfortably on room air Airway Control: returned to baseline unsupported. Cardiovascular Status: stable. Pain Management: clinically adequate Postoperative Hydration: acceptable. Intraoperative Events: no significant anesthesia events Post Operative Nausea/Vomiting Status: no significant post operative nausea or vomiting Recommendation: continue current plan of care. Anesthesia Observations No Documentation SIGNATURE: Bella Torres MD PATIENT NAME: Milka Zamudio DATE: February 12, 2022 TIME: 12:33 PM CSN: [id number] [facility] ANES PRE-OPon 02-12-2022 ANES PRE-OP HNO ID: [id number] Author: Bella Torres MD Service: ? Author Type: Anesthesiologist Type: Anesthesia Preprocedure Evaluation Filed: 02/12/2022 8:34 AM Note Text: ANESTHESIOLOGY DAY OF SURGERY NOTE : 1995 Procedure Information Anesthesia Start Date/Time: 02/12/22 0757 Procedure: INCISION, DEEP, WITH OPENING OF BONE CORTEX, FEMUR OR KNEE (Right: Knee) Location: [place] OR [address] [place] [address] OR Surgeons: Faviola Palmer MD Estimated body mass index is 27.71 kg/m? as calculated from the following: Height as of 02/02/22: 185.4 cm (6' 1). Weight as of 02/02/22: 95.3 kg (210 lb). Most recent hematocrit and potassium results: Hematocrit 27.4 01/25/2021 Potassium 3.8 01/24/2021 Relevant Problems No relevant active problems - current smoker 1/2 pk per day - last smoked last evening I - PHYSICAL EVALUATION AIRWAY Patient intubated: No. Tracheostomy tube not present Mallampati: II. TM distance: >3 FB. Neck ROM: full ROM without neurological symptoms. Mouth opening: adequate. Short neck: no. Thick neck: no Hairston present: no DENTAL Dental findings: missing tooth/teeth. II - ANESTHESIA PLAN ASA Score: 2 Anesthetic Plan: general Airway type: LMA The patient is a current smoker. NPO Status: adequate Beta Roxie Monitoring Plan Monitoring plan: standard ASA. Post Procedure Analgesic Plan Postoperative analgesic plan: parenteral or oral opioids and peripheral nerve block. Informed Consent Anesthetic risks, benefits, alternatives, personnel and consent discussed: yes. Patient / Responsible Libertarian agrees to proceed: yes Patient / Surrogate agrees to blood products: blood products not planned Potential Anesthesia issues that may suggest increased risk of complications or contraindication to planned procedure: none. Vitals Value Taken Time BP 115/79 02/12/22714 Pulse 65 02/12/22714 Resp 20 02/12/22714 Temp 36.8 ?C (98.2 ?F) 02/12/22714 SpO2 98 % 02/12/22714 Facility-Administered Medications as of 02/12/2022 Medication Dose Route Frequency - ceFAZolin iv piggyback 2 g in D5W (iso-osmotic) 100 mL (ANCEF) 2 g INTRAVENOUS ONCE - NaCl 0.9% iv flush bag 20 mL INTRAVENOUS PRN - NaCl 0.9% irrigation bag X (OR/PROCEDURE) PRN - NaCl 0.9% irrigation solution X (OR/PROCEDURE) PRN - midazolam (PF) injection (VERSED) INTRAVENOUS PRN - fentaNYL 50 mcg/mL injection (SUBLIMAZE) INTRAVENOUS PRN Outpatient Medications as of 02/12/2022 Medication Sig - Walker misc 1 wheeled walker with bilateral elbow platforms (Patient not taking: Reported on 03/05/2021 ) - Walker misc 1 wheeled walker with bilateral elbow platforms (Patient not taking: Reported on 03/05/2021 ) I have interviewed and examined the patient. I have reviewed the medical record and/or the pre-anesthesia evaluation, pertinent labs, and test results. This contains updated information obtained within 48 hours of Surgery/Procedure. SIGNATURE: Bella Torres MD PATIENT NAME: Milka Zamudio DATE: February 12, 2022 TIME: 8:33 AM CSN: [id number] Normal [facility] HISTORY PHYSICALon HISTORY PHYSICAL HNO ID: [id number] Author: Faviola Palmer MD Service: Orthopaedic Surgery Author Type: Physician Type: HANDP Filed: 02/12/2022 7:39 AM Note Text: UPDATED HISTORY AND PHYSICAL EXAMINATION SERVICE DATE: 02/12/2022 SERVICE TIME: 737 PHYSICAL EXAM MUST BE COMPLETED ON ADMISSION The History and Physical (completed in the past 30 days) has been reviewed and the patient has been examined. The contents accurately reflect the patient's condition with the following additions or revisions since the HANDP was completed. Examination indicates no changes. This HANDP can be found in the Electronic Medical Record dated 12/30/21. 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 SEX: M PATIENT TYPE: A HOSP SVC: OR LOCATION: [facility] ATTENDING PHYSICIAN: Faviola Palmer MD CSN NUMBER: [id number] DATE OF SURGERY/PROCEDURE: 02/12/2022 INCISION/PROCEDURE START TIME: 8:14 AM INCISION CLOSE/PROCEDURE END TIME: 8:54 AM PREOPERATIVE DIAGNOSIS: Infected hardware, right patella. POSTOPERATIVE DIAGNOSIS: Infected hardware, right patella. SURGEON: Faviola Palmer MD PRECINCT CAPTAIN: Dr. Santiago. SURGERY/PROCEDURE: 1. Deep painful hardware removal, right patella. 2. Irrigation and debridement to bone, right patella. ANESTHESIA: General with laryngeal mask airway. ESTIMATED BLOOD LOSS: 50 mL. BLOOD PRODUCTS: No blood products given. PACKS/DRAINS: No packs or drains used. FLUIDS: 500 mL of crystalloid. WELLER: No Weller. SPECIMENS: No specimens. INTRAOPERATIVE FINDINGS: Consistent with preoperative diagnosis. COMPLICATIONS: There were no complications. ANTIBIOTICS: The patient received Ancef 2 g IV preoperatively. DISPOSITION: The patient was returned to the PACU in stable condition. BRIEF HISTORY: Mr. Zamudio is a gentleman known to myself. History of comminuted patellar fracture, femur fracture, and distal radius fracture. Surgical fixation of the patella was performed with K-wires due to the comminution. He has gone on to heal as well. Over time, he has developed infections that come and go. He has been treating these at home. 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 He is on his knees a significant amount. It was recommended that he undergo removal of the hardware with irrigation and debridement due to the persistence of the symptoms. This was discussed with the patient and family members. I discussed the risks, benefits, complications, alternatives. I answered their questions and they wished to proceed. DESCRIPTION OF PROCEDURE: Informed consent was obtained. Patient was appropriately identified in the presurgical area. He was brought back to the operating room and placed on the operating table in supine position. Anesthesia was administered followed by placement laryngeal mask airway. At all times, head, neck, and airway controlled by Anesthesia staff. A bump was placed under right hip. The right lower extremity was then prescrubbed with Hibiclens and alcohol and then prepped and draped in sterile orthopedic fashion. Time-out was performed per [facility] protocol. Patient received 2 g Ancef IV preoperatively. Using the previous incision, we made this with a scalpel. Electrocautery was used for hemostasis. Dissection carried down to the patella and the patellar tendon. We elevated the soft tissues. Thick scarring over the patella. The area of that was draining through the skin was ellipsed. Once we were down to the patella, we then used C-arm imaging to identify our K wires. We then made an incision longitudinally within the soft tissues, found the K-wires were removed, all 4 K-wires. This was confirmed with C-arm imaging. We then used curettes to debride down to the bone. We then thoroughly irrigated with sterile saline. Closure ensued with repair of the longitudinal incisions in the deep tissues with 0 Vicryl. 2-0 Vicryl in dermis, 4-0 nylon for the skin. A dressing was placed. The patient was subsequently awakened from anesthesia and taken to recovery room in stable condition. POSTOPERATIVE PLAN: He will be sent home with some pain medication as well as oral antibiotics. He can be weight bear as tolerated. Minimize knee flection. Faviola Palmer MD WK:[id number] /[id number] Normal [facility] XR KNEE 2V AP/LAT RTon 02-12 XR KNEE 2V AP/LAT RT * * *Final Report* * * DATE OF EXAM: Feb 12 2022 10:06AM [facility] [id number] - XR KNEE 2V AP/LAT RT / PROCEDURE REASON: RIGHT KNEE HARDWARE REMOVAL * * * * Physician Interpretation * * * * EXAM TITLE: INTRAOPERATIVE SPOT VIEWS OF THE RIGHT PATELLA DATE: February 12, 2022 at 8:32 AM COMPARISON: January 22, 2021. CLINICAL INDICATION/HISTORY: The patient is a 26-year-old male with previous open reduction and internal fixation of patellar fracture with painful hardware. TECHNIQUE: 0 minutes and 13 seconds of fluoroscopy time was available in the OR. 2 spot films were obtained. Fluoroscopy Radiation dose: Integrated dose-area product (DAP) for this visit = 1.69 mGy*cm. FINDINGS: The intramedullary priyanka and distal femoral fixation screws are stable and unchanged. Previous wire fixation hardware in the patella is removed. IMPRESSION: Intraoperative spot view documents technically successful removal of right patellar hardware. Alarm Operator: PSCB Transcribe Date/Time: Feb 18 2022 1:17P Dictated by : TOBY BARNEY MD This examination was interpreted and the report reviewed and electronically signed by: TOBY BARNYE MD on Feb 18 2022 1:19PM EST [id number] Normal [facility] HISTORY PHYSICALon 2 HISTORY PHYSICAL HNO ID: [id number] Author: Carol Mayer APRN.SENIOR DATA ANALYST Service: ? Author Type: Nurse Practitioner Type: HANDP Filed: 02/02/2022 10:59 AM Note Text: HISTORY AND PHYSICAL EXAMINATION SERVICE DATE: 02/02/2022 SERVICE TIME: 10:57 AM PRIMARY CARE PHYSICIAN: No primary care provider on file. REASON FOR VISIT: Milka Zamudio is a 26 year old male who is scheduled for Procedure(s): INCISION, DEEP, WITH OPENING OF BONE CORTEX, FEMUR OR KNEE (Right) at the request of Dr. Faviola Palmer for routine HANDP. My final recommendation will be communicated back to the requesting physician by way of shared medical record or letter. 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 CHIEF COMPLAINT: Presurgical exam HPI: Milka is a 26 year old male presenting for PST. History of fall from a ladder onto concrete in January 2021 where he had multiple fractures including right patella fracture. He has hardware in the right knee and a recurrent wound infection to the right knee. States he has tried antibiotics and it does not help the infection. Denies current pain. Has pain to the knee with walking up stairs. Denies numbness or weakness to the leg. Denies fever or chills. After discussion with the surgeon, the patient agrees to surgical intervention. REVIEW OF SYSTEMS: General: No weight loss, malaise or fevers. Neurological: No history of TIA's, stroke, TRACTOR TRAILER DRIVER tumor, impaired sensorium, hemiplegia, paraplegia or quadraplegia. No neurological symptoms or problems. Respiratory: Positive for: tobacco use. Negative for: asthma, COPD, home oxygen, pneumonia within 6 weeks and obstructive sleep apnea. Cardiovascular: No history of HTN requiring medication, no history of angina, CHF, NV, cardiac surgery or stents. Denies rest pain, gangrene or revascularization/amput ation for PVD. No history of cardiovascular symptoms or problems. GI: No history of GI symptoms or problems. No history of esophageal varices, recent ascites, or ETOH greater than 2 drinks per day. : No history of dysuria, frequency or incontinence, stones or chronic kidney disease. No difficulty urinating, nocturia > 1 time per night or hematuria. Endocrine: No history of diabetes. Has not taken steroids within the past 30 days. No history of endocrinological symptoms or problems. Hematology: No history of bleeding or clotting disorder. Patient is not taking anti-coagulation or platelet medications. No history of hematological symptoms or problems. Oncology: No history of CA metastasis, chemo within 30 days, or radiotherapy within 90 days. No history of oncological symptoms or problems. Psych: No history of psychiatric symptoms or problems. Musculoskeletal: See HPI. Positive for: joint pain. Skin: See HPI. PAST MEDICAL HISTORY Diagnosis Date 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 (HCC) Mandible fracture (HCC) 01/22/2021 Right leg pain 01/22/2021 right femur and patella fractures Right wrist pain 01/22/2021 wrist fracture due to fall Trauma 01/22/2021 fall from 16 ft ladder onto concrete PAST SURGICAL HISTORY Procedure Laterality Date PAST SURGICAL HISTORY OF Right 01/22/2021 right wrist and knee surgery- fracture repair PAST SURGICAL HISTORY OF 2020 ORIF mandible FAMILY HISTORY Problem Relation Age of Onset Hypertension Mother Heart disease Maternal Grandmother Social History Tobacco Use Smoking status: Some Days Packs/day: 0.50 Years: 18.00 Pack years: 9.00 Types: Cigarettes Smokeless tobacco: Former Types: Snuff Quit date: 03/05/2021 Tobacco comments: mild use of snuff no longer using Vaping Use Vaping Use: Some days Substances: Nicotine, Flavoring Devices: Disposable, Pre-filled or refillable cartridge Substance Use Topics Alcohol use: Not Currently Drug use: Never Prior to Admission medications as of 02/02/22 1042 Medication Sig Last Dose Taking Walker misc 1 wheeled walker with bilateral elbow platforms Patient not taking: Reported on 03/05/2021 Walker misc 1 wheeled walker with bilateral elbow platforms Patient not taking: Reported on 03/05/2021 No medication comments found. ALLERGIES No Known Allergies Objective PHYSICAL EXAM: General: alert and oriented and healthy appearance. Pertinent negatives noted - not distressed. Skin: normal color, no rash or lesions. HEENT: EOM intact and pupils equal round. Cardiovascular: regular rate and rhythm, normal S1 and S2, no rub, murmurs, or gallop. Respiratory: normal breath sounds, no wheezes or crackles. Abdomen: bowel sounds present and soft. Pertinent negatives noted - not tend (more content not included)... Normal [facility] Norberto 01-19-2022 [facility] Telephone (AGPOB1) MILKA ZAMUDIO ([id number]) 1995 M Date Time Provider Department 01/19/22 [facility] ORTH AGPOB1 During your visit today, we recorded the following information about you: Avril Layne 01/19/2022 3:37 PM Signed Called patient to confirm pretesting and post op appointments. Left a message. Avril Layne January 19, 2022 3:36 PM Allergies As of Date: 01/19/2022 (No Known Allergies) Date Reviewed: 12/30/2021 Reviewed by: Faviola Palmer MD - Fully Assessed Reason for Visit: Appointment [[id number]] Prescriptions as of 01/19/2022 - aspirin 325 mg tablet Take 1 tablet by mouth twice daily for 21 days. - Walker misc 1 wheeled walker with bilateral elbow platforms - Walker misc 1 wheeled walker with bilateral elbow platforms Facility-Administered Medications as of 01/19/2022 - midazolam (PF) injection (VERSED) - fentaNYL 50 mcg/mL injection (SUBLIMAZE) Problem List As Of Date 01/19/2022 Noted Resolved Injury resulting from fall from height [W17.89X*01/22/2021 01/25/2021 Closed fracture of right condylar process of ma*01/22/2021 Closed fracture of maxillary sinus (HCC) [S02.4*01/22/2021 Closed dislocation of mandible [S03.00XA] 01/22/2021 03/05/2021 Closed displaced comminuted fracture of shaft o*01/22/2021 01/25/2021 Closed comminuted fracture of right patella [S8*01/22/2021 01/25/2021 Open fracture of distal end of radius [S52.509B]01/22/2021 01/25/2021 Closed nondisplaced fracture of styloid process*01/22/2021 01/25/2021 Blood in ear canal, bilateral [H92.23] 01/22/2021 01/25/2021 Facial laceration [S01.81XA] 01/22/2021 01/25/2021 Fall [W19.XXXA] 01/22/2021 01/25/2021 Nicotine use disorder, F17.2 [F17.200] 01/23/2021 Encounter Status:Closed by AVRIL LAYNE on 01/19/22 [facility] Hillary 12-30-2021 CNOV Office Visit (AGPOB1 ) MILKA ZAMUDIO ([id number]) 1995 M Date Time Provider Department 12/30/21 9:45 AM FAVIOLA PALMER AGPOB1 During your visit today, we recorded the following information about you: Respiration Weight Height 20/minute 95.3 kg 1.854 m Faviola Palmer MD 12/30/2021 10:03 AM Signed Chief complaint: Right knee pain. History of present illness: Patient is known to myself. Here for follow-up regarding his right patella fracture as well as wound. He states his wound and infection has been improving. Has been taking care of this on his own at home. He also states he has some pain going up and down stairs. Denies any new injuries. For the patient's past medical history, past surgical history, medications, allergies, family history, social history, and review of systems please refer to medical history in chart. Physical exam: The patient is alert and oriented no acute distress. Answers questions appropriate has a normal affect. Examination of the right lower extremity shows full knee range of motion. Small wound inferior aspect of the patella. Small surrounding erythema. Minimal drainage. Extensor mechanism intact. Assessment: #1 Right patella fracture. Plan: At this time he would like to refrain from any operation. I stated if his infection gets worse, he is to contact the office and we will get this scheduled for removal. We did discuss the operation if necessary. This would be using the same incision and removing the hardware placed in the patella along with irrigation debridement. To be an outpatient procedure. He expressed understanding. 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 We will see him back on as-needed basis. If there is any questions or concerns in the future, he will contact the office. Questions answered. Referring Provider: FAVIOLA PALMER [[id number]] Allergies As of Date: 12/30/2021 (No Known Allergies) Date Reviewed: 12/30/2021 Reviewed by: Faviola Palmer MD - Fully Assessed Reason for Visit: Follow Up [171] Infection [816556] Primary Visit Diagnosis:Other closed fracture of right patella with routine healing, subsequent encounter [S45.185U] Prescriptions as of 02/13/2022 - oxyCODONE-acetaminophen (PERCOCET) 5-325 mg tablet Take 1 tablet by mouth every 6 hours as needed for pain for up to 3 days. - doxycycline hyclate (VIBRAMYCIN) 100 mg capsule Take 1 capsule by mouth twice daily for 14 days. Facility-Administered Medications as of 02/13/2022 - midazolam (PF) injection (VERSED) - fentaNYL 50 mcg/mL injection (SUBLIMAZE) Problem List As Of Date 12/30/2021 Noted Resolved Injury resulting from fall from height [W17.89X*01/22/2021 01/25/2021 Closed fracture of right condylar process of ma*01/22/2021 Closed fracture of maxillary sinus (HCC) [S02.4*01/22/2021 Closed dislocation of mandible [S03.00XA] 01/22/2021 03/05/2021 Closed displaced comminuted fracture of shaft o*01/22/2021 01/25/2021 Closed comminuted fracture of right patella [S8*01/22/2021 01/25/2021 Open fracture of distal end of radius [S52.509B]01/22/2021 01/25/2021 Closed nondisplaced fracture of styloid process*01/22/2021 01/25/2021 Blood in ear canal, bilateral [H92.23] 01/22/2021 01/25/2021 Facial laceration [S01.81XA] 01/22/2021 01/25/2021 Fall [W19.XXXA] 01/22/2021 01/25/2021 Nicotine use disorder, F17.2 [F17.200] 01/23/2021 Disposition: Return if symptoms worsen or fail to improve. Follow-up and Disposition History for Encounter Date Provider Department Center 12/30/2021 [id number]-EUCPAFAVIOLA PALMER AGPOB1 AG B Encounter Status:Closed by FAVIOLA PALMER on 12/30/21 [facility] CNOVon 10-28-2021 CNOV Office Visit (AGPOB1 ) MILKA ZAMUDIO ([id number]) 1995 M Date Time Provider Department 10/28/21 1:15 PM FAVIOLA PALMER AGPOB1 During your visit today, we recorded the following information about you: Respiration Weight Height 18/minute 95.3 kg 1.854 m Kelly Avendaño ARNAUD 10/28/2021 1:46 PM Signed REVIEW OF SYSTEMS: GENERAL: Well developed, well nourished. No acute distress PAIN: Pain 02/24 CARDIOVASCULAR: Negative for chest pain, leg swelling and palpations. MSK: Positive for joint swelling SKIN: redness right knee NEURO: Negative for seizure, trauma, numbness/tingling of extremities. ENDOCRINE: Negative for diabetic associated symptoms HEMATOLOGY: Negative for excessive bleeding, clots, bleeding disorders. Faviola Palmer MD 10/28/2021 1:46 PM Signed Chief complaint: Right knee pain and swelling. History of present illness: The patient is known to myself. History of patella fracture as well as femur and wrist fracture. Approximate 6 weeks ago he landed on his right knee. Since that time he has been having some pain and swelling. Did have some drainage and some erythema as well as redness and swelling. This has gotten better. He comes in today for evaluation. Denies any systemic symptoms such as fevers or chills. For the patient's past medical history, past surgical history, medications, allergies, family history, social history, and review of systems please refer to medical history in chart. Physical exam: The patient is alert and oriented no acute distress. Answers questions appropriate. Has a normal affect. Ambulates without assistance. Satisfactory gait. Examination right lower extremity shows well-healed incision. Small area of erythema and swelling midportion of the incision. Some mild tenderness palpation over prominent hardware. Tenderness palpation over swelling and erythema. No drainage. Assessment: #1 right patella fracture with superficial skin infection. Plan: This time we discussed irrigation debridement as well as hardware removal. He would like this done. If he could push this off to the new year he would like this for his work schedule. We can attempt to do this. A prescription for doxycycline was provided. We will monitor his symptoms. If his symptoms worsen, we would need to do something sooner surgically. He expressed understanding. I will see him back in December. If there is any questions or concerns prior to his next encounter, he will contact the office. Questions answered. Referring Provider: SELF [[id number]] Allergies As of Date: 10/28/2021 (No Known Allergies) Date Reviewed: 10/28/2021 Reviewed by: Faviola Palmer MD - Fully Assessed Reason for Visit: Established Patient [175] Primary Visit Diagnosis:Other closed fracture of shaft of right femur with routine healing, subsequent encounter [S72.978D] Other Visit Diagnoses:Other closed fracture of right patella with routine healing, subsequent encounter [S82.091D] Other type I or II open intra-articular fracture of distal end of right radius with routine healing, subsequent encounter [S52.941E] Order(s):doxycycline (VIBRA-TABS) 100 mg tabletTake 1 tablet by mouth twice daily for 10 days.Disp: 20 tabletRfl: 0 Prescriptions as of 10/28/2021 - doxycycline (VIBRA-TABS) 100 mg tablet Take 1 tablet by mouth twice daily for 10 days. - aspirin 325 mg tablet Take 1 tablet by mouth twice daily for 21 days. - Walker misc 1 wheeled walker with bilateral elbow platforms - Walker misc 1 wheeled walker with bilateral elbow platforms Facility-Administered Medications as of 10/28/2021 - midazolam (PF) injection (VERSED) - fentaNYL 50 mcg/mL injection (SUBLIMAZE) Problem List As Of Date 10/28/2021 Noted Resolved Injury resulting from fall from height [W17.89X*01/22/2021 01/25/2021 Closed fracture of right condylar process of ma*01/22/2021 Closed fracture of maxillary sinus (HCC) [S02.4*01/22/2021 Closed dislocation of mandible [S03.00XA] 01/22/2021 03/05/2021 Closed displaced comminuted fracture of shaft o*01/22/2021 01/25/2021 Closed comminuted fracture of right patella [S8*01/22/2021 01/25/2021 Open fracture of distal end of radius [S52.509B]01/22/2021 01/25/2021 Closed nondisplaced fracture of styloid process*01/22/2021 01/25/2021 Blood in ear canal, bilateral [H92.23] 01/22/2021 01/25/2021 Facial laceration [S01.81XA] 01/22/2021 01/25/2021 Fall [W19.XXXA] 01/22/2021 01/25/2021 Nicotine use disorder, F17.2 [F17.200] 01/23/2021 Prescriptions ordered this encounter Disp Refills Start End DOXYCYCLINE HYCLATE 100 MG TABLET 20 t* 0 10/28/2021 11/07/2021 Route: ORAL Sig: Take 1 tablet by mouth twice daily for 10 days. Disposition: Return in about 2 months (around 12/28/2021). Follow-up and Disposition History for Encounter Date Provider Department Center 10/28/2021 [id number] PALMER (more content not included)... [facility] (AGPOB1) MILKA ZAMUDIO ([id number]) 1995 Date Time Provider Department 10/16/21 LUZ ELENA [facility] During your visit today, we recorded the following information about you: Joey Ware [place] [facility] 10/16/2021 3:44 PM Signed The patient's home therapist, Delia [phone], called with concerns about the patient's wound. She states it's getting worse and he is developing pain beneath the hardware. 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 She wants to know if an antibiotic could be called in or if you need to see him again in office? Joey Wrae Cr[facility] October 16, 2021 3:43 PM Joey Ware [place] [facility] 10/17/2021 9:42 AM Signed Faviola Palmer MD You 14 hours ago (5:19 PM) I will see him in office. Joey Ware [facility] 10/17/2021 9:42 AM Signed Called the patient and informed him Dr. Palmer would like to see him back in office for his worsening wound. Patient was agrreable, but does not want to move forward with surgery until February. He has to get financially cleared through [facility] for the appointment and will call me back once he is so we can bring him back into the office. Joey Ware [place] [facility] October 17, 2021 9:42 AM Allergies As of Date: 10/16/2021 (No Known Allergies) Date Reviewed: 09/09/2021 Reviewed by: Faviola Palmer MD - Fully Assessed Reason for Visit: Patient Update [1234] Prescriptions as of 10/17/2021 - aspirin 325 mg tablet Take 1 tablet by mouth twice daily for 21 days. - Walker misc 1 wheeled walker with bilateral elbow platforms - Walker misc 1 wheeled walker with bilateral elbow platforms Facility-Administered Medications as of 10/17/2021 - midazolam (PF) injection (VERSED) - fentaNYL 50 mcg/mL injection (SUBLIMAZE) Problem List As Of Date 10/16/2021 Noted Resolved Injury resulting from fall from height [W17.89X*01/22/2021 01/25/2021 Closed fracture of right condylar process of ma*01/22/2021 Closed fracture of maxillary sinus (HCC) [S02.4*01/22/2021 Closed dislocation of mandible [S03.00XA] 01/22/2021 03/05/2021 Closed displaced comminuted fracture of shaft o*01/22/2021 01/25/2021 Closed comminuted fracture of right patella [S8*01/22/2021 01/25/2021 Open fracture of distal end of radius [S52.509B]01/22/2021 01/25/2021 Closed nondisplaced fracture of styloid process*01/22/2021 01/25/2021 Blood in ear canal, bilateral [H92.23] 01/22/2021 01/25/2021 Facial laceration [S01.81XA] 01/22/2021 01/25/2021 Fall [W19.XXXA] 01/22/2021 01/25/2021 Nicotine use disorder, F17.2 [F17.200] 01/23/2021 Encounter Status:Closed by CHAZ ASSEMBLER TESTER JOEY CRUZ on 10/17/21 [facility] CNOVon 09-09-2021 CNOV Office Visit (AGPOB1 ) MILKA ZAMUDIO ([id number]) 1995 M Date Time Provider Department 09/09/21 9:30 AM FAVIOLA PALMER AGPOB1 During your visit today, we recorded the following information about you: Respiration Weight Height 18/minute 95.3 kg 1.854 m Faviola Palmer MD 09/09/2021 10:03 AM Signed Chief complaint: Open wound right knee. History of present illness: The patient returns today follow-up regarding his open right distal radius, right femur fracture and right patella fracture. States he developed an infection over his right patella. He has been doing local wound care. He states it is getting better. For the patient's past medical history, past surgical history, medications, allergies, family history, social history, and review of systems please refer to medical history in chart. Physical exam: Patient is alert and oriented no acute distress. Answers all questions appropriate. Has a normal affect. Examination right upper extremity shows full range of motion. Good pronation supination. Good wrist flexion and extension. He can flex and extend all digits including thumb. Examination right lower extremity shows satisfactory knee range of motion. No signs of overt infection at this time. Does have an area of the epithelialization midportion of patella. No surrounding cellulitis. No purulent drainage. Imaging: Please refer to the radiographic interpretation Assessment: #1 right distal radius fracture. #2 right femur fracture. #3 right patella fracture. Plan: At this time he will continue his local wound care is this is improving. He can perform activities as tolerated. We did discuss the potential need for hardware removal in the future but this would involve a large incision. He prefer not to have this. I will see him back on an as-needed basis. If there is any questions or concerns or future, he will contact the office. Questions answered. Referring Provider: SELF [[id number]] Allergies As of Date: 09/09/2021 (No Known Allergies) Date Reviewed: 09/09/2021 Reviewed by: Faviola Palmer MD - Fully Assessed Reason for Visit: Established Patient [175] Follow Up [171] Primary Visit Diagnosis:Other type I or II open intra-articular fracture of distal end of right radius with routine healing, subsequent encounter [S52.571E] Other Visit Diagnoses:Other closed fracture of shaft of right femur with routine healing, subsequent encounter [S72.391D] Other closed fracture of right patella with routine healing, subsequent encounter [S82.091D] Order(s):XR FEMUR GENERAL 2V AP/LAT RIGHT [[id number]] Order #: [id number] XR WRIST GENERAL 3V PA/LAT/OBL RIGHT [[id number]] Order #: [id number] Prescriptions as of 09/09/2021 - aspirin 325 mg tablet Take 1 tablet by mouth twice daily for 21 days. - Walker misc 1 wheeled walker with bilateral elbow platforms - Walker misc 1 wheeled walker with bilateral elbow platforms Facility-Administered Medications as of 09/09/2021 - midazolam (PF) injection (VERSED) - fentaNYL 50 mcg/mL injection (SUBLIMAZE) Problem List As Of Date 09/09/2021 Noted Resolved Injury resulting from fall from height [W17.89X*01/22/2021 01/25/2021 Closed fracture of right condylar process of ma*01/22/2021 Closed fracture of maxillary sinus (HCC) [S02.4*01/22/2021 Closed dislocation of mandible [S03.00XA] 01/22/2021 03/05/2021 Closed displaced comminuted fracture of shaft o*01/22/2021 01/25/2021 Closed comminuted fracture of right patella [S8*01/22/2021 01/25/2021 Open fracture of distal end of radius [S52.509B]01/22/2021 01/25/2021 Closed nondisplaced fracture of styloid process*01/22/2021 01/25/2021 Blood in ear canal, bilateral [H92.23] 01/22/2021 01/25/2021 Facial laceration [S01.81XA] 01/22/2021 01/25/2021 Fall [W19.XXXA] 01/22/2021 01/25/2021 Nicotine use disorder, F17.2 [F17.200] 01/23/2021 Disposition: Return if symptoms worsen or fail to improve. Follow-up and Disposition History for Encounter Date Provider Department Center 09/09/2021 [id number] PALMER AGPOB1 AG POB Encounter Status:Closed by FAVIOLA PALMER on 09/09/21 [facility] CNOVon 05-20-2021 [facility] Office Visit (AGPOB1 ) MILKA ZAMUDIO ([id number]) 1995 M Date Time Provider Department 05/20/21 10:00 AM FAVIOLA PALMER During your visit today, we recorded the following information about you: Respiration Weight Height 18/minute 88.5 kg 1.854 m Faviola Palmer MD 05/20/2021 10:22 AM Signed Chief complaint: Right knee and wrist pain. This present office: The patient returns today follow-up Varsha his right distal radius fracture, right patella fracture and right femur fracture. He had surgical fixation on 01/22/2021. Overall he is doing well. Still with some stiffness in his right knee. Also has the most difficulty with extension of his wrist. It also hurts to kneel on his right knee. Overall he is doing well. He is very pleased with his progress. He is now back to work. For the patient's past medical history, past surgical history, medications, allergies, family history, social history, and review of systems please refer to medical history in chart. Physical exam: The patient is alert and oriented no acute distress. Answers all questions appropriately. Is a normal affect. He ambulates without assistance. Satisfactory gait. Examination right lower extremity shows extensor mechanism to be intact. All wounds well-healed around his knee. He can flex approximately 110 degrees. No prominent hardware. Examination right upper extremity shows it to be neuro vas intact. Good pronation supination. Good wrist flexion. Decreased wrist extension. He can flex and extend all digits including thumb. Imaging: Please refer to the radiographic interpretation Assessment: #1Right distal radius fracture. #2 right femoral shaft fracture. #3 right patella fracture. Plan: At this time he is doing well. We discussed potential need for hardware removal of his knee. This will be based on symptoms only. We discussed the use of kneepads while kneeling. No activity restrictions. He would like to see me back on as-needed basis. If there is any questions or concerns in the future, he will contact the office. All questions answered. Referring Provider: FAVIOLA PALMER [[id number]] Allergies As of Date: 05/20/2021 (No Known Allergies) Date Reviewed: 05/20/2021 Reviewed by: Faviola Palmer MD - Fully Assessed Reason for Visit: Follow Up [171] Established Patient [175] Follow Up [171] Established Patient [175] Follow Up [171] Established Patient [175] Primary Visit Diagnosis:Other type I or II open intra-articular fracture of distal end of right radius with routine healing, subsequent encounter [S52.131E] Other Visit Diagnoses:Other closed fracture of shaft of right femur with routine healing, subsequent encounter [S72.845D] Other closed fracture of right patella with routine healing, subsequent encounter [S82.211D] Order(s):XR WRIST GENERAL 3V PA/LAT/OBL RIGHT [[id number]] Order #: [id number] XR FEMUR GENERAL 2V AP/LAT RIGHT [[id number]] Order #: [id number] Prescriptions as of 05/20/2021 - aspirin 325 mg tablet Take 1 tablet by mouth twice daily for 21 days. - Walker misc 1 wheeled walker with bilateral elbow platforms - Walker misc 1 wheeled walker with bilateral elbow platforms Facility-Administered Medications as of 05/20/2021 - midazolam (PF) injection (VERSED) - fentaNYL 50 mcg/mL injection (SUBLIMAZE) Problem List As Of Date 05/20/2021 Noted Resolved Injury resulting from fall from height [W17.89X*01/22/2021 01/25/2021 Closed fracture of right condylar process of ma*01/22/2021 Closed fracture of maxillary sinus (HCC) [S02.4*01/22/2021 Closed dislocation of mandible [S03.00XA] 01/22/2021 03/05/2021 Closed displaced comminuted fracture of shaft o*01/22/2021 01/25/2021 Closed comminuted fracture of right patella [S8*01/22/2021 01/25/2021 Open fracture of distal end of radius [S52.509B]01/22/2021 01/25/2021 Closed nondisplaced fracture of styloid process*01/22/2021 01/25/2021 Blood in ear canal, bilateral [H92.23] 01/22/2021 01/25/2021 Facial laceration [S01.81XA] 01/22/2021 01/25/2021 Fall [W19.XXXA] 01/22/2021 01/25/2021 Nicotine use disorder, F17.2 [F17.200] 01/23/2021 Disposition: Return if symptoms worsen or fail to improve. Follow-up and Disposition History for Encounter Date Provider Department Center 05/20/2021 [id number] PALMERB1 AG POB Encounter Status:Closed by FAVIOLA PALMER on 05/20/21 [facility] CNOVon 04-08-2021 CNOV Office Visit (AGPOB1 ) MILKA ZAMUDIO ([id number]) 1995 M Date Time Provider Department 04/08/21 9:45 AM FAVIOLA PALMER During your visit today, we recorded the following information about you: Respiration Weight Height 18/minute 88.5 kg 1.854 m Jak Moreno PA-C 04/08/2021 10:47 AM Signed Orthopedic Post Operative Note DOS: 01/22/2021 Procedure: Status post ORIF right patella, ORIF right wrist, intramedullary nailing right femur. Surgeon: Spencer MCDERMOTT Subjective: Patient is a 25 years old seen in follow up on POD 78. Milka is doing well and is accompanied with family. Together they explained that he is continuing to make progress. He still using a range of motion brace locked at 40 degrees flexion. He is working on daily flexion and extension. He denies any numbness or tingling to the right lower extremity or the right hand. All incisions are healing well without signs of drainage he denies fevers or chills Resp 18 Ht 6' 1 (1.85m) Wt 195 lb (88.5kg) BMI 25.73 kg/(m2). Exam: Alert and oriented 25-year-old male in no apparent distress Inspection of the right wrist reveals healing scar through the ventral wrist without signs of breakdown hand cascades into a fist normally full range of motion minimal tenderness to the distal radius fixation plate neurovascular intact right hand Inspection of the right knee shows healed surgical incision without signs of breakdown or drainage range of motion is 65 degrees flexion 0 degrees of extension with minimal lag quad is palpated and is soft throughout all compartments positive FHL/EHL of the right great toe brisk capillary refill less than 2 seconds 2+ dorsalis pedis pulse Diagnostic Imagin views of the right wrist shows cortical fixation plate in good position reduction of the fracture is anatomic multiple cortical school screws are in good position without signs of loosening 2 views of the right knee show several cutaneous wires and pins through the patella with good anatomic reduction and without signs of displacement from last radiographs. 2 views of the right femur show intramedullary nailing securing the distal third femoral fracture there is one cortical screw in good position and without signs of loosening there is callus formation seen around the fracture site. No malrotation is appreciated Assessment:S/P polytrauma, ORIF right wrist right patella, and intramedullary nailing of the right femur. Doing well and making good post operative recovery. Plan: Functional Plan: Good discussion with Milka and his family. He is continuing to show showing signs of improvement. Assistance Devices: Discontinue range of motion brace Physical/Occupational Therapy: Renewal of physical therapy for evaluation and treatment to increase range of motion's and strength of the hip knee and right wrist. Wound Care: N/A Pain Control: Euug-qqe-rqvqndq analgesics Fragility Fracture: Minimal Additional: Patient seen and radiographs reviewed with Dr. Palmer. We will begin full weightbearing as tolerated and discontinue the [place] brace. With the assistance of physical therapy will work for flexion of the knee and strength and extension Follow-up in 6 weeks with repeat x-rays of the right wrist right knee and right femur Jak Moreno PA-C Referring Provider: MARIAH FAIRBANKS [[id number]] Allergies As of Date: 04/08/2021 (No Known Allergies) Date Reviewed: 04/08/2021 Reviewed by: Jak Moreno PA-C - Fully Assessed Reason for Visit: Post Op [174] Post Op [174] Primary Visit Diagnosis:Other type I or II open intra-articular fracture of distal end of right radius with routine healing, subsequent encounter [S52.571E] Other Visit Diagnoses:Other closed fracture of shaft of right femur with routine healing, subsequent encounter [S72.391D] Other closed fracture of right patella with routine healing, subsequent encounter [S82.091D] Order(s):XR FEMUR GENERAL 2V AP/LAT RIGHT [[id number]] Order #: [id number] XR WRIST GENERAL 3V PA/LAT/OBL RIGHT [[id number]] Order #: [id number] CONSULT TO PHYSICAL THERAPY (AG) [[id number]] Order #: [id number]: 1 Prescriptions as of 04/08/2021 - aspirin 325 mg tablet Take 1 tablet by mouth twice daily for 21 days. - Walker misc 1 wheeled walker with bilateral elbow platforms - Walker misc 1 wheeled walker with bilateral elbow platforms Facility-Administered Medications as of 04/08/2021 - midazolam (PF) injection (VERSED) - fentaNYL 50 mcg/mL injection (SUBLIMAZE) Problem List As Of Date 04/08/2021 Noted Resolved Injury resulting from fall from height [W17.89X*01/22/2021 01/25/2021 Closed fracture of right condylar process of ma*01/22/2021 Closed fracture of maxillary sinus (HCC) [S02.4*01/22/2021 Closed dislocation of mandible [S03.00XA] 01/22/2021 03/05/2021 Closed displaced comminuted fracture of shaft (more content not included)... Normal [facility] CNOVon 03-04-2021 CN Office Visit (AGPOB1 ) MILKA ZAMUDIO ([id number]) 1995 M Date Time Provider Department 03/04/21 9:45 AM FAVIOLA PALMER AGPOB1 During your visit today, we recorded the following information about you: Respiration Weight Height 16/minute 88.5 kg 1.854 m Kelly Avendaño ARNAUD 03/04/2021 10:06 AM Signed REVIEW OF SYSTEMS: GENERAL: Well developed, well nourished. No acute distress PAIN: Negative for pain, history of chronic pain or current treatment for chronic pain conditions CARDIOVASCULAR: Negative for chest pain, leg swelling and palpations. MSK: Negative for joint swelling SKIN: Negative for lesions, rash, itching, metal sensitivity NEURO: Trauma fall ENDOCRINE: Negative for diabetic associated symptoms HEMATOLOGY: Negative for excessive bleeding, clots, bleeding disorders. Faviola Palmer MD 03/04/2021 10:06 AM Signed Subjective: Patient returns today follow-up in his open right distal radius fracture., Right femur fracture, right patella fracture. Overall doing well. He states he has a therapist coming to his house today. Objective: Examination of the right upper extremity shows it to be neuro vas intact. Decreased range of motion right wrist. Incision healing well. Examination right lower extremity shows muscle atrophy to be present. All wounds healing well. He does ambulate without assistance. He is in a locked knee brace. Imaging: Please refer to the radiographic interpretation Assessment: #1 right distal radius fracture. #2 right femur fracture. #3 right patella fracture. Plan: At this time he can be weight-bear as tolerated all extremities. He will work on range of motion for all extremities. A new prescription for therapy was provided. I will see him back in 4 weeks. Jlzf-wcl-yhzqbyr pain medication. If is any concerns or questions prior to the next encounter, they will contact the office. Questions answered. Referring Provider: FAVIOLA PALMER [[id number]] Allergies As of Date: 03/04/2021 (No Known Allergies) Date Reviewed: 03/04/2021 Reviewed by: Faviola Palmer MD - Fully Assessed Reason for Visit: Established Patient [175] Established Patient [175] Primary Visit Diagnosis:Other type I or II open intra-articular fracture of distal end of right radius with routine healing, subsequent encounter [S52.571E] Other Visit Diagnoses:Other closed fracture of shaft of right femur with routine healing, subsequent encounter [S72.391D] Other closed fracture of right patella with routine healing, subsequent encounter [S82.091D] Order(s):XR FEMUR GENERAL 2V AP/LAT RIGHT [[id number]] Order #: [id number] XR WRIST GENERAL 3V PA/LAT/OBL RIGHT [[id number]] Order #: [id number] CONSULT TO PHYSICAL THERAPY (AG) [[id number]] Order #: [id number]: 1 Prescriptions as of 03/04/2021 - aspirin 325 mg tablet Take 1 tablet by mouth twice daily for 21 days. - Walker misc 1 wheeled walker with bilateral elbow platforms - Walker misc 1 wheeled walker with bilateral elbow platforms Facility-Administered Medications as of 03/04/2021 - midazolam (PF) injection (VERSED) - fentaNYL 50 mcg/mL injection (SUBLIMAZE) Problem List As Of Date 03/04/2021 Noted Resolved Injury resulting from fall from height [W17.89X*01/22/2021 01/25/2021 Closed fracture of right condylar process of ma*01/22/2021 Closed fracture of maxillary sinus (HCC) [S02.4*01/22/2021 Closed dislocation of mandible [S03.00XA] 01/22/2021 Closed displaced comminuted fracture of shaft o*01/22/2021 01/25/2021 Closed comminuted fracture of right patella [S8*01/22/2021 01/25/2021 Open fracture of distal end of radius [S52.509B]01/22/2021 01/25/2021 Closed nondisplaced fracture of styloid process*01/22/2021 01/25/2021 Blood in ear canal, bilateral [H92.23] 01/22/2021 01/25/2021 Facial laceration [S01.81XA] 01/22/2021 01/25/2021 Fall [W19.XXXA] 01/22/2021 01/25/2021 Nicotine use disorder, F17.2 [F17.200] 01/23/2021 Disposition: Return in about 4 weeks (around 04/01/2021). Follow-up and Disposition History for Encounter Date Provider Department Center 03/04/2021 [id number]-DJAKLFAVIOLA PALMER AGPOB1 AG POB Encounter Status:Closed by FAVIOLA PALMER on 03/04/21 [facility] No Panel Information [facility] Vital Signs Date Time Vital Sign Value Performing Clinician Faci lity 05-18-2024 19:32-0400 Body mass index (BMI) [Ratio] 27.45 kg/m2 Héctor Moomaw DIGITAL PRODUCT MANAGER.SENIOR DATA ANALYST Work Phone: [facility] 05-18-2024 19:32-0400 Body weight 91.8 kg Héctor Moomaw DIGITAL PRODUCT MANAGER.SENIOR DATA ANALYST Work Phone: [facility] 05-18-2024 19:32-0400 Diastolic blood pressure 70 mm[Hg] Hétcor Moomaw DIGITAL PRODUCT MANAGER.SENIOR DATA ANALYST Work Phone: [facility] 05-18-2024 19:32-0400 Heart rate 98 /min Héctor Moomaw DIGITAL PRODUCT MANAGER.SENIOR DATA ANALYST Work Phone: [facility] 05-18-2024 19:32-0400 Respiratory rate 16 /min Héctor Moomaw DIGITAL PRODUCT MANAGER.SENIOR DATA ANALYST Work Phone: [facility] 05-18-2024 19:32-0400 Systolic blood pressure 118 mm[Hg] Héctor Moomaw DIGITAL PRODUCT MANAGER.SENIOR DATA ANALYST Work Phone: [facility] 02-27-2022 11:27-0500 Body height 182.9 cm Faviola Palmer MD Work Phone: [facility] 02-27-2022 11:27-0500 Body weight 95.25 kg Faviola Palmer MD Work Phone: [facility] 02-27-2022 11:27-0500 Respiratory rate 18 /min Faviola Palmer MD Work Phone: [facility] 02-02-2022 10:45-0500 Body height 185.4 cm Pst 1 [facility] 02-02-2022 10:45-0500 Body temperature 97.5 [degF] Pst 1 [facility] 02-02-2022 10:45-0500 Body weight 95.25 kg Pst 1 [facility] 02-02-2022 10:45-0500 Diastolic blood pressure 73 mm[Hg] Pst 1 [facility] 02-02-2022 10:45-0500 Heart rate 76 /min Pst 1 [facility] 02-02-2022 10:45-0500 Respiratory rate 18 /min Pst 1 [facility] 02-02-2022 10:45-0500 SaO2% (BldA) [Mass fraction] 100 % Pst 1 [facility] 02-02-2022 10:45-0500 Systolic blood pressure 122 mm[Hg] Pst 1 [facility] 12-30-2021 09:54-0500 Body height 185.4 cm Faviola Palmer MD Work Phone: [facility] 12-30-2021 09:54-0500 Body weight 95.25 kg Faviola Palmer MD Work Phone: [facility] 12-30-2021 09:54-0500 Respiratory rate 20 /min Faviola Palmer MD Work Phone: [facility] 10-28-2021 13:31-0400 Body height 185.4 cm Faviola Palmer MD Work Phone: [facility] 10-28-2021 13:31-0400 Body weight 95.25 kg Faviola Palmer MD Work Phone: [facility] 10-28-2021 13:31-0400 Respiratory rate 18 /min Faviola Palmer MD Work Phone: [facility] 09-09-2021 09:38-0400 Body height 185.4 cm Faviola Palmer MD Work Phone: [facility] 09-09-2021 09:38-0400 Body weight 95.25 kg Faviola Palmer MD Work Phone: [facility] 09-09-2021 09:38-0400 Respiratory rate 18 /min Faviola Palmer MD Work Phone: [facility] 05-20-2021 10:03-0400 Body height 185.4 cm Faviola Palmer MD Work Phone: [facility] 05-20-2021 10:03-0400 Body weight 88.45 kg Faviola Palmer MD Work Phone: [facility] 05-20-2021 10:03-0400 Respiratory rate 18 /min Faviola Palmer MD Work Phone: [facility] Encounters Encounter Date Encounter Type Care Provider Facility Start: 05-23-2024 End: 05-23-2024 ambulatory MELITON CARLOS Facility:[facility] Start: 05-23-2024 End: 05-23-2024 Patient encounter procedure Meliton Carlos DO Work Phone: [facility] [place] Comment on above: Effusion of right kn ee (Primary Dx); Acute pain of right knee; Patellofemoral arthritis of right knee; Post-traumatic osteoarthritis of right knee Start: 05-18-2024 End: 05-18-2024 Subsequent hospital visit by physician [facility] [place] Work Phone: Radiology Comment on above: Acute pain of right knee [M25.561] Start: 05-18-2024 End: 05-18-2024 ambulatory HÉCTOR SUSANW Facility:[facility] Start: 05-18-2024 End: 05-18-2024 Patient encounter procedure Héctor Jamegeraldow DIGITAL PRODUCT MANAGER.SENIOR DATA ANALYST Work Phone: [place] [facility] Comment on above: Acute pain of right knee (Primary Dx) Start: 02-27-2022 End: 02-28-2022 ambulatory FAVIOLA PALMER Facility:[facility] Start: 02-27-2022 End: 02-27-2022 Patient encounter procedure Faviola Palmer MD Work Phone: [facility] Comment on above: Other closed fractur e of right patella with routine healing, subsequent encounter (Primary Dx) Start: 02-13-2022 Telephone encounter Faviola Palmer MD Work Phone: [facility] Comment on above: Appointment Start: 02-12-2022 End: 02-12-2022 ambulatory FAVIOLA PALMER Facility:[facility] Start: 02-02-2022 End: 02-03-2022 ambulatory FAVIOLA PALMER Facility:[facility] Start: 02-02-2022 Encounter for other preprocedural examination FAVIOLA PALMER [facility] Start: 02-02-2022 End: 02-02-2022 Admission to establishment [facility] [place] [facility] Start: 02-02-2022 End: 02-02-[address] 1 [facility] Comment on above: Preop examination [Z 01.818 (ICD-10-CM)] (Primary Dx); 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, initial encounter (HCC) [T84.7XXA (ICD-10-CM)]; Smoker [F17.200 (ICD-10-CM)] Start: 02-02-2022 End: 02-02-2022 Preprocedural examination done Pst 1 Pre Surgical Testing Start: 01-19-2022 Telephone encounter Ag Orth Work Phone: [facility] Comment on above: Appointment Start: 01-16-2022 Orders Only Faviola rene MD Work Phone: [facility] Comment on above: 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, initial encounter (HCC) (Primary Dx) Start: 12-30-2021 End: 12-30-2021 ambulatory FAVIOLA PALMER Facility:[facility] Start: 12-30-2021 End: 12-30-2021 Patient encounter procedure Faviola Palmer MD Work Phone: [facility] Comment on above: Other closed fractur e of right patella with routine healing, subsequent encounter (Primary Dx) Start: 10-28-2021 End: 10-28-2021 ambulatory FAVIOLA PALMER Facility:[facility] Start: 10-28-2021 End: 10-28-2021 Patient encounter procedure Faviola Palmer MD Work Phone: [facility] Comment on above: Other closed fractur e of shaft of right femur with routine healing, subsequent encounter (Primary Dx); Other closed fracture of right patella with routine healing, subsequent encounter; Other type I or II open intra-articular fracture of distal end of right radius with routine healing, subsequent encounter Start: 10-16-2021 Telephone encounter Ag Orth Work Phone: [facility] Comment on above: Patient Update Start: 09-09-2021 End: 09-09-2021 ambulatory FAVIOLA PALMER Facility:[facility] Start: 09-09-2021 End: 09-09-2021 Patient encounter procedure Faviola Palmer MD Work Phone: [facility] Comment on above: Other type I or II o pen intra-articular fracture of distal end of right radius with routine healing, subsequent encounter (Primary Dx); Other closed fracture of shaft of right femur with routine healing, subsequent encounter; Other closed fracture of right patella with routine healing, subsequent encounter Start: 05-20-2021 End: 05-20-2021 ambulatory FAVIOLA PALMER Facility:[facility] Start: 05-20-2021 End: 05-20-2021 Patient encounter procedure Faviola Palmer MD Work Phone: [facility] Comment on above: Other type I or II o pen intra-articular fracture of distal end of right radius with routine healing, subsequent encounter (Primary Dx); Other closed fracture of shaft of right femur with routine healing, subsequent encounter; Other closed fracture of right patella with routine healing, subsequent encounter Start: 04-08-2021 End: 04-08-2021 ambulatory FAVIOLA PLAMER Facility:[facility] Start: 03-04-2021 End: 03-04-2021 ambulatory FAVIOLA PALMER Facility:[facility] Procedures Date Procedure Procedure Detail Performing Clinician Start: 05-18-2024 Radiologic exam knee complete 4/more views Héctor Arroyo APRN.CNP Work Phone: Start: 09-09-2021 Radiologic examinati on femur minimum 2 views Faviola Palmer MD Work Phone: Start: 05-20-2021 Radiologic examinati on femur minimum 2 views Faviola Palmer MD Work Phone: Plan of Treatment Date Care Activity Detail Author Start: 01-22-2031 Urine microalbumin profile [facility] Start: 05-23-2024 End: 05-23-2024 Patient encounter procedure 05/23/2024 1:30 PM EDT Office Visit [facility] [place] [address] [place], [place] [address] Meliton Carlos V, DO [address] [place] [address] Acute pain of right knee [M25.561] [facility] [place] Comment on above: Acute pain of right knee [M25.561] Start: 10-17-2023 Covid-19 Vaccine ( season) Covid-19 Vaccine ( season) [facility] Start: 10-17-2023 Influenza vaccination Influenza Vacc ine (#1) [facility] Start: 02-15-2022 [facility]PRESSION [facility]MENT [facility] Start: 10-16-2021 Influenza vaccination [facility] Start: 02-15-2021 DEPRESSION ASSESSMENT [facility] Start: 2012 Hepatitis B Vaccine (1 of 3 - 19+ 3-dose series) Hepatitis B Vaccine (1 of 3 - 19+ 3-dose series) [facility] Start: 2012 Pneumococcal vaccination Pneum ococcal Vaccine (1 of 2 - PCV) [facility] Start: 2011 Anxiety Screening Anxiety Screening [facility] Start: 2011 Depression Screening Depression Scre ening [facility] Start: 2011 HEPATITIS C SCREENING HEPATITIS C [facility] Start: 2011 Hepatitis C screening Hepatitis C [facility] Start: 2011 HIV SCREENING HIV SCREENING [facility] Start: 2011 HIV screening HIV Screening [facility] Start: 2005 Adult depression screening assessment DEPRESSION SCREENING [facility] Start: 1999 PNEUMOCOCCAL (1 - PCV) PNEUMOCOCCAL (1 - PCV) [facility] Start: 1998 COVID-19 VACCINE (1) COVID-19 VACCIN E (1) [facility] Start: 1993 COVID-19 VACCINE (#1) COVID-19 VACCI NE (#1) [facility] Start: 1993 HEPATITIS B (1 of 3 - 3-dose series) HEPATITIS B (1 of 3 - 3-dose series) [facility] Immunizations Immunization Date Immunization Notes Care Provider Fa bernardo 01-22-2021 tetanus toxoid, redu cory diphtheria toxoid, and acellular pertussis vaccine, adsorbed Faviola Palmer MD Work Phone: [facility] Payers Date Payer Category Payer Private Health Insurance [id number] 2021 Unknown JAINISM SELF P AY JAINISM SELF PAY GENERIC [id number] 2021-Present [phone] [id number] [facility] [address] [place] [address] Other [id number] 2021 Unknown [id number] 2021 Worker's Compensation [id number] Social History Date Type Detail Facility Start: 01-29-2021 End: 05-18-2024 Tobacco smoking status NHIS Occasional tobacco smoker [facility] History of tobacco use Cigarette Smoker [facility] Start: 01-29-2021 End: 05-18-2024 Tobacco use and exposure Former smokeless tobacco user [facility] End: 03-05-2021 History of tobacco use Snuff User [facility] Start: 05-20-2021 End: 05-23-2024 Alcohol intake Ex-drinker (finding) [facility] Start: 03-05-2021 End: 12-30-2021 Tobacco Comment mild use of snuff no longer using [facility] Start: 1993 Sex Assigned At Not on file [facility] Start: 05-10-2021 End: 12-30-2021 Exposure to SARS-CoV-2 (event) Not sure [facility] Start: 01-29-2022 End: 05-23-2024 Cigarettes smoked current (pack per day) - Reported 0.5 [facility] Start: 05-18-2024 End: 05-23-2024 Tobacco use panel [facility] National Score (1-10 0), lower number is lower risk 44 [facility] Medical Equipment Procedure Code Equipment Code Equipment Original Text Equipment Identifier Dates Rfn-A Femur Nail 5deg Bend 11mm X 400mm Sterile [id number] Start: 01-22-2021 Locking Screw Tf na Medullary Nail 5mm X 40mm Xl25 Ns [id number] Start: 01-22-2021 Locking Screw Fo r Im Nail 5mm 60mm Xl25 [id number] Start: 01-22-2021 Locking Screws F or Medullary Nail 5mm X 90mm [id number] Start: 01-22-2021 Screw [id number] Start: 01-22-2021 Plate Lcp Combi Stainless Steel 47x25.5mm Bone 7 Hole Head 2 Hole Shaft 2 - [id number] Start: 01-22-2021 Plate Smartlock Small Bone Hybrid Maxillofacial - [id number] Start: 01-31-2021 Screw Lcp 2.4mm T8 Stainless Steel 18mm Bone Variable Angle Lock Self Tap - [id number] Start: 01-22-2021 Screw Lcp 2.4mm T8 Stainless Steel 22mm Bone Variable Angle Lock Self Tap - [id number] Start: 01-22-2021 Screw Lcp 2.7mm T8 Stainless Steel 16mm Bone Stardrive Self Tap Modular - [id number] Start: 01-22-2021 Screw Lcp 2.4mm T8 Stainless Steel 16mm Bone Variable Angle Lock Self Tap - [id number] Start: 01-22-2021 Screw Smartlock 2mm Titanium 8mm Bone Lock Self Drill Maxillomandibular - [id number] Start: 01-31-2021 Functional Status Date Assessment Result Facility 01-25-2021 Are you deaf, or do you have serious difficulty hearing No 01/25/2021 10:23 AM Dmitriy Jackson, GUSTAVO No [facility] 01-25-2021 Are you blind, or do you have serious difficulty seeing, even when wearing glasses No 01/25/2021 10:23 AM Dmitriy Jackson, RN No [facility] 01-25-2021 Do you have serious difficulty walking or climbing stairs Yes 01/25/2021 10:23 AM Dmitriy Jackson, RN Yes [facility] 01-25-2021 Do you have difficul ty dressing or bathing No 01/25/2021 10:23 AM Dmitriy Jackson, RN No [facility] 01-25-2021 Because of a physica l, mental, or emotional condition, do you have difficulty doing errands alone such as visiting a physician's office or shopping Yes 01/25/2021 10:23 AM Dmitriy Jackson, RN Yes [facility] Mental Status Date Assessment Result Facility 01-25-2021 Because of a physica l, mental, or emotional condition, do you have serious difficulty concentrating, remembering, or making decisions No 01/25/2021 10:23 AM Dmitriy Jackson, GUSTAVO No [facility] Clinical Notes 01-22-2021 to 05-23-2024 Meliton Carlos V, DO - 05/23/2024 1:46 PM Funmi Herrera MA - 05/23/2024 1:21 PM Holly Yoon, (R) - 05/18/2024 7:50 PM Héctor Blue APRN.SENIOR DATA ANALYST - 05/18/2024 7:41 PM EDT Note Date & Type Note Facility 05-23-2024 Note HNO ID: [id number] Author: MELITON CARLOS DO Service: ? Author Type: Physician Type: Progress Notes Filed: 05/23/2024 13:47 Note Text: Subjective The patient is a 29-year-old male presenting for right knee pain and swelling. Right Knee Pain and Swelling: - Reports swelling and pain in the right knee, limiting flexion to approximately 90 degrees. - Noticed swelling after kneeling on the right knee during work on ; typically bears weight on the left knee. - Describes a sensation of pressure when attempting to bend the knee. - Denies pain with extension or varus/valgus stress. - Denies pain over the anterior joint line with palpation. - Pain and a pop sensation occur when flexing the knee to 90 degrees. - Has a knee brace used post-injury to keep the leg straight. 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 Right Knee Injury: - Sustained a fall from 16 feet onto concrete on 01/22/2022, resulting in a shattered patella (in 7 pieces), fractured femur, wrist, and jaw. - Treated by Dr. Palmer in [place]. Musculoskeletal: (+) right knee swelling, (+) right knee pain Objective There were no vitals taken for this visit. General: No acute distress. MSK/Ext: Right knee effusion, loss of patellar definition, scar present, no pain with extension, varus or valgus stress, or anterior joint line palpation; pain and crepitus at 90 degrees of flexion. Imaging - X-ray of the Right Knee: Hardware in place and intact; joint space is well maintained. Arthritic changes noted under the patella consistent with patellofemoral arthritis. 1. Acute pain of right knee (M25.561) 2. Effusion of right knee (M25.461) 3. Patellofemoral arthritis of right knee (M17.11) 4. Post-traumatic osteoarthritis of right knee (M17.31) - Right knee effusion with limited flexion to 90 degrees and palpable crepitus on exam. - Recent x-rays reviewed, showing well-positioned hardware and preserved joint space, but significant arthritic changes under the patella. - Discussed pathophysiology of effusion and arthritis, including synovial fluid overproduction due to joint irritation. - Prescribed prednisone 20 mg orally twice daily for 5 days to reduce inflammation and pain. - Provided a compression wrap for immediate use and recommended purchasing a knee compression sleeve for ongoing support during activities. - Advised monitoring for signs of infection, including erythema, increased warmth, and severe pain, and to seek immediate medical attention if these occur. - Patient understands and agrees with the treatment plan. Attestation The patient consented to the use of ambient AI software for draft documentation of the visit consistent with [facility]?s Notice of Privacy Practices. [facility] 05-23-2024 History of Presen t illness Narrative Subjective The patient is a 29-year-old male presenting for right knee pain and swelling. Right Knee Pain and Swelling: - Reports swelling and pain in the right knee, limiting flexion to approximately 90 degrees. - Noticed swelling after kneeling on the right knee during work on ; typically bears weight on the left knee. - Describes a sensation of pressure when attempting to bend the knee. - Denies pain with extension or varus/valgus stress. - Denies pain over the anterior joint line with palpation. - Pain and a pop sensation occur when flexing the knee to 90 degrees. - Has a knee brace used post-injury to keep the leg straight. - Works in [employer] as a ly. Right Knee Injury: - Sustained a fall from 16 feet onto concrete on 01/22/2022, resulting in a shattered patella (in 7 pieces), fractured femur, wrist, and jaw. - Treated by Dr. Palmer in [place]. Musculoskeletal: (+) right knee swelling, (+) right knee pain Objective There were no vitals taken for this visit. General: No acute distress. MSK/Ext: Right knee effusion, loss of patellar definition, scar present, no pain with extension, varus or valgus stress, or anterior joint line palpation; pain and crepitus at 90 degrees of flexion. Imaging - X-ray of the Right Knee: Hardware in place and intact; joint space is well maintained. Arthritic changes noted under the patella consistent with patellofemoral arthritis. 1. Acute pain of right knee (M25.561) 2. Effusion of right knee (M25.461) 3. Patellofemoral arthritis of right knee (M17.11) 4. Post-traumatic osteoarthritis of right knee (M17.31) - Right knee effusion with limited flexion to 90 degrees and palpable crepitus on exam. - Recent x-rays reviewed, showing well-positioned hardware and preserved joint space, but significant arthritic changes under the patella. - Discussed pathophysiology of effusion and arthritis, including synovial fluid overproduction due to joint irritation. - Prescribed prednisone 20 mg orally twice daily for 5 days to reduce inflammation and pain. - Provided a compression wrap for immediate use and recommended purchasing a knee compression sleeve for ongoing support during activities. - Advised monitoring for signs of infection, including erythema, increased warmth, and severe pain, and to seek immediate medical attention if these occur. - Patient understands and agrees with the treatment plan. Attestation The patient consented to the use of ambient TermSync software for draft documentation of the visit consistent with [facility] s Notice of Privacy Practices. Patient presents with: Right Knee Pain: Referred by Héctor [facility] INTAKE FLOWSHEET DATA Pain Pain Level: 1 Pain Location: Knee-Right Description: Dull Duration Amount of Time: 5 Duration Units: Days Frequency: Intermittent Intervention/Comfort measure: Medication documented in this encounter [facility] 05-23-2024 Note HNO ID: [id number] Author: FUNMI ASAVEDRA MA Service: ? Author Type: Wafer Line Worker Type: Progress Notes Filed: 05/23/2024 13:47 Note Text: Patient presents with: Right Knee Pain: Referred by Héctor [facility] [employer] FLOWSHEET DATA Pain Pain Level: 1 Pain Location: Knee-Right Description: Dull Duration Amount of Time: 5 Duration Units: Days Frequency: Intermittent Intervention/Comfort measure: Medication [facility] 05-18-2024 History of Presen t illness Narrative Radiology Service Progress Note PATIENT NAME: Milka Zamudio DATE OF SERVICE: May 18, 2024 TIME: 7:44 PM PATIENT IDENTITY VERIFICATION COMPLETED USING TWO (2) IDENTIFIERS: Name and Date of confirmed by patient verbally. FALL SCREENING: Has the patient had 2 falls in the last year or 1 fall with injury or currently using an Ambulatory Assistive Device (Walker, Cane, Wheelchair, Crutches, etc.)? No PATIENT GENDER DATA: Assigned male at PATIENT RELEVANT IMPLANT DATA REVIEWED: Yes PATIENT PRESENTS WITH AN IMPLANTABLE OR ATTACHED POSTPARTUM RN: No RADIOLOGY DEPARTMENT: General X-ray: Exam(s) Completed: Lower Extremity X-Ray(s): Knee, AP / Lat / Tunne / Merchant Right PERIPHERAL IV DATA: Not applicable SIGNED BY: RT Adair(R) May 18, 2024 7:44 PM documented in this encounter [facility] 05-18-2024 Note HNO ID: [id number] Author: HOLLY DAVE RT(R) Service: ? Author Type: Coffee Urn Attendant Type: Progress Notes Filed: 05/18/2024 19:58 Note Text: Radiology Service Progress Note PATIENT NAME: Milka Zamudio DATE OF SERVICE: May 18, 2024 TIME: 7:44 PM PATIENT IDENTITY VERIFICATION COMPLETED USING TWO (2) IDENTIFIERS: Name and Date of confirmed by patient verbally. FALL SCREENING: Has the patient had 2 falls in the last year or 1 fall with injury or currently using an Ambulatory Assistive Device (Walker, Cane, Wheelchair, Crutches, etc.)? No PATIENT GENDER DATA: Assigned male at PATIENT RELEVANT IMPLANT DATA REVIEWED: Yes PATIENT PRESENTS WITH AN IMPLANTABLE OR ATTACHED POSTPARTUM RN: No RADIOLOGY DEPARTMENT: General X-ray: Exam(s) Completed: Lower Extremity X-Ray(s): Knee, AP / Lat / Tunne / Merchant Right PERIPHERAL IV DATA: Not applicable SIGNED BY: RT Adair(R) May 18, 2024 7:44 PM [facility] 05-18-2024 Note HNO ID: [id number] Author: HÉCTOR ARROYO APRN.ROBBIE Service: ? Author Type: Nurse Practitioner Type: Progress Notes Filed: 05/18/2024 20:05 Note Text: This note was created using NoteWriter. Subjective Milka Zamudio is a 29 year old male. HPI Little over 3 years ago patient apparently fell about 16 feet shattering his right patella breaking other multiple bones. 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 As the day progressed he began to notice increasing pain throughout the right knee. Patient otherwise denies any strain or trauma. He does note some swelling around the right knee. Review of Systems As above Objective BP 118/70 Pulse 98 Resp 16 Wt 91.8 kg (202 lb 6.1 oz) BMI 27.45 kg/m? Physical Exam Vitals and nursing note reviewed. Constitutional: General: He is not in acute distress. Appearance: Normal appearance. He is not ill-appearing. HENT: Head: Normocephalic. Pulmonary: Effort: Pulmonary effort is normal. Musculoskeletal: Cervical back: Normal range of motion. Comments: Limited range of motion of right knee due to pain. Diffuse swelling and pain noted around the right knee. No obvious deformities noted Skin: General: Skin is warm and dry. Neurological: General: No focal deficit present. Mental Status: He is alert. Psychiatric: Mood and Affect: Mood normal. Behavior: Behavior normal. Assessment and Plan ASSESSMENT/PLAN: 1. Acute pain of right knee - ICD9: 719.46, ICD10: M25.561 Initial read of the x-ray by myself shows no acute abnormalities. Patient will use his home knee brace as needed for comfort. He was given follow-up with orthopedics if symptoms do not improve. - XR KNEE GENERAL 4V AP BOTH/PA BOTH/LAT/MERC RIGHT - CONSULT PANEL TO ORTHOPAEDICS Héctor Arroyo APRN.[facility] 05-18-2024 History of Presen t illness Narrative This note was created using CEDU. Subjective Milka Zamudio is a 29 year old male. HPI Little over 3 years ago patient apparently fell about 16 feet shattering his right patella breaking other multiple bones. 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 As the day progressed he began to notice increasing pain throughout the right knee. Patient otherwise denies any strain or trauma. He does note some swelling around the right knee. Review of Systems As above Objective BP 118/70 Pulse 98 Resp 16 Wt 91.8 kg (202 lb 6.1 oz) BMI 27.45 kg/m Physical Exam Vitals and nursing note reviewed. Constitutional: General: He is not in acute distress. Appearance: Normal appearance. He is not ill-appearing. HENT: Head: Normocephalic. Pulmonary: Effort: Pulmonary effort is normal. Musculoskeletal: Cervical back: Normal range of motion. Comments: Limited range of motion of right knee due to pain. Diffuse swelling and pain noted around the right knee. No obvious deformities noted Skin: General: Skin is warm and dry. Neurological: General: No focal deficit present. Mental Status: He is alert. Psychiatric: Mood and Affect: Mood normal. Behavior: Behavior normal. Assessment and Plan ASSESSMENT/PLAN: 1. Acute pain of right knee - ICD9: 719.46, ICD10: M25.561 Initial read of the x-ray by myself shows no acute abnormalities. Patient will use his home knee brace as needed for comfort. He was given follow-up with orthopedics if symptoms do not improve. - XR KNEE GENERAL 4V AP BOTH/PA BOTH/LAT/MERC RIGHT - CONSULT PANEL TO ORTHOPAEDICS Héctor Arroyo APRN.SENIOR DATA ANALYST documented in this encounter [facility] 02-27-2022 Note HNO ID: [id number] Author: Faviola Palmer MD Service: ? Author Type: Physician Type: Progress Notes Filed: 02/27/2022 12:06 PM Note Text: Subjective: Patient returns today follow-up guarding his heart removal from his right patella. Overall doing well. States his knee feels better. Objective: Examination right lower extremity shows wound to be healing well. No signs of infection. Assessment: #1 right patella fracture status post hardware removal. Plan at this time doing well. Sutures were removed. No activity restrictions. I will see him back on as-needed basis. If is any questions or concerns in the future, he will contact the office. His questions were answered. [facility] 02-27-2022 History of Presen t illness Narrative Subjective: Patient returns today follow-up guarding his heart removal from his right patella. Overall doing well. States his knee feels better. Objective: Examination right lower extremity shows wound to be healing well. No signs of infection. Assessment: #1 right patella fracture status post hardware removal. Plan at this time doing well. Sutures were removed. No activity restrictions. I will see him back on as-needed basis. If is any questions or concerns in the future, he will contact the office. His questions were answered. documented in this encounter [facility] 02-13-2022 Miscellaneous Notes Called patient to reschedule 02/24/2022 post op appointment to 02/27/2022. Left a message. Avril Layne February 13, 2022 10:37 AM documented in this encounter [facility] 02-12-2022 Note HNO ID: [id number] Author: Bella Torres MD Service: ? 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 Reason for block: post-op pain management/at surgeon's request Staffing Anesthesiologist: Bella Torres MD Performed by: anesthesiologist Preparation Sterility Preparation: hand hygiene performed prior to procedure, surgical cap used, mask used, skin prep agent completely dried prior to procedure Site Prep: alcohol Pre-Procedure Neuro Exam Location: RLE Procedure Details Block Type Lower Extremity: distal femoral (adductor canal) Laterality: right Injection Technique: single-shot Ultrasound Guided: Yes Image in Chart: no Local Infiltration: Yes Needle Needle Type: echogenic Needle Gauge: 21 G Needle Length: 100 mm Needle Localization: anatomical landmarks and ultrasound Assessment Injection assessment: negative aspiration, no paresthesia on injection, incremental injection and local visualized surrounding nerve on ultrasound Medications Administered ropivacaine (PF) 5 mg/mL (0.5 %) injection (NAROPIN) - peripheral nerve block 15 mL - 02/12/2022 9:35:00 AM SIGNATURE: Bella Torres MD PATIENT NAME: Milka Zamudio DATE: February 12, 2022 TIME: 9:52 AM CSN: [id number] [facility] 02-12-2022 Note HNO ID: [id number] Author: Noemy Rand RN Service: Family Practice Author Type: Registered Nurse Type: Nursing Progress Note Filed: 02/12/2022 9:39 AM Note Text: Dr Torres completed post op block [facility] 02-12-2022 Note HNO ID: [id number] Author: Delia Jones APRN.SENIOR LIVING SALES COUNSELOR Service: Anesthesiology Author Type: Nurse Manager Wellness Type: Anesthesia Procedure Notes Filed: 02/12/2022 8:18 AM Note Text: ANESTHESIOLOGY PROCEDURE NOTE Airway General Information Procedure Start Time/Medication Administration: 02/12/2022 8:03 AM Patient location during procedure: OR Patient identity confirmed: arm band Staffing Anesthesiologist: Bella Torres MD SENIOR LIVING SALES COUNSELOR: Delia Jones APRN.SENIOR LIVING SALES COUNSELOR Performed by: SENIOR LIVING SALES COUNSELOR Indications and Patient Condition Indications for airway management: anesthesia Preoxygenated: yes anesthesia circuit Patient position: sniffing Method: asleep Cricoid Pressure: No Manual In-Line Stabilization: No Difficult Mask: No Final Airway Details Final airway type: supraglottic airway Number of attempts at approach: 1 Final Supraglottic Airway: i-gel Size 4 Seal Adequate: yes Failed airway: no Airway not difficult SIGNATURE: Delia Jones APRN.SENIOR LIVING SALES COUNSELOR PATIENT NAME: Milka Zamudio DATE: February 12, 2022 TIME: 8:18 AM CSN: [id number] [facility] 02-02-2022 History and physical note HISTORY AND PHYSICAL EXAMINATION SERVICE DATE: 02/02/2022 SERVICE TIME: 10:57 AM PRIMARY CARE PHYSICIAN: No primary care provider on file. REASON FOR VISIT: Milka Zamudio is a 26 year old male who is scheduled for Procedure(s): INCISION, DEEP, WITH OPENING OF BONE CORTEX, FEMUR OR KNEE (Right) at the request of Dr. Faviola Palmer for routine H&P. My final recommendation will be communicated back to the requesting physician by way of shared medical record or letter. 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 CHIEF COMPLAINT: Presurgical exam HPI: Milka is a 26 year old male presenting for PST. History of fall from a ladder onto concrete in January 2021 where he had multiple fractures including right patella fracture. He has hardware in the right knee and a recurrent wound infection to the right knee. States he has tried antibiotics and it does not help the infection. Denies current pain. Has pain to the knee with walking up stairs. Denies numbness or weakness to the leg. Denies fever or chills. After discussion with the surgeon, the patient agrees to surgical intervention. REVIEW OF SYSTEMS: General: No weight loss, malaise or fevers. Neurological: No history of TIA's, stroke, TRACTOR TRAILER DRIVER tumor, impaired sensorium, hemiplegia, paraplegia or quadraplegia. No neurological symptoms or problems. Respiratory: Positive for: tobacco use. Negative for: asthma, COPD, home oxygen, pneumonia within 6 weeks and obstructive sleep apnea. Cardiovascular: No history of HTN requiring medication, no history of angina, CHF, NV, cardiac surgery or stents. Denies rest pain, gangrene or revascularization/amputation for PVD. No history of cardiovascular symptoms or problems. GI: No history of GI symptoms or problems. No history of esophageal varices, recent ascites, or ETOH greater than 2 drinks per day. : No history of dysuria, frequency or incontinence, stones or chronic kidney disease. No difficulty urinating, nocturia > 1 time per night or hematuria. Endocrine: No history of diabetes. Has not taken steroids within the past 30 days. No history of endocrinological symptoms or problems. Hematology: No history of bleeding or clotting disorder. Patient is not taking anti-coagulation or platelet medications. No history of hematological symptoms or problems. Oncology: No history of CA metastasis, chemo within 30 days, or radiotherapy within 90 days. No history of oncological symptoms or problems. Psych: No history of psychiatric symptoms or problems. Musculoskeletal: See HPI. Positive for: joint pain. Skin: See HPI. PAST MEDICAL HISTORY Diagnosis Date 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 (HCC) Mandible fracture (HCC) 01/22/2021 Right leg pain 01/22/2021 right femur and patella fractures Right wrist pain 01/22/2021 wrist fracture due to fall Trauma 01/22/2021 fall from 16 ft ladder onto concrete PAST SURGICAL HISTORY Procedure Laterality Date PAST SURGICAL HISTORY OF Right 01/22/2021 right wrist and knee surgery- fracture repair PAST SURGICAL HISTORY OF 2020 ORIF mandible FAMILY HISTORY Problem Relation Age of Onset Hypertension Mother Heart disease Maternal Grandmother Social History Tobacco Use Smoking status: Some Days Packs/day: 0.50 Years: 18.00 Pack years: 9.00 Types: Cigarettes Smokeless tobacco: Former Types: Snuff Quit date: 03/05/2021 Tobacco comments: mild use of snuff no longer using Vaping Use Vaping Use: Some days Substances: Nicotine, Flavoring Devices: Disposable, Pre-filled or refillable cartridge Substance Use Topics Alcohol use: Not Currently Drug use: Never Prior to Admission medications as of 02/02/22 1042 Medication Sig Last Dose Taking Walker misc 1 wheeled walker with bilateral elbow platforms Patient not taking: Reported on 03/05/2021 Walker misc 1 wheeled walker with bilateral elbow platforms Patient not taking: Reported on 03/05/2021 No medication comments found. ALLERGIES No Known Allergies Objective PHYSICAL EXAM: General: alert and oriented and healthy appearance. Pertinent negatives noted - not distressed. Skin: normal color, no rash or lesions. HEENT: EOM intact and pupils equal round. Cardiovascular: regular rate and rhythm, normal S1 and S2, no rub, murmurs, or gallop. Respiratory: normal breath sounds, no wheezes or crackles. Abdomen: bowel sounds present and soft. Pertinent negatives noted - not tender. Extremities: no deformity, no edema or tenderness, no joint swelling or clubbing. Neurological: normal cognition and motor skills. Gait normal. No weakness or sensory deficit. PAIN ASSESSMENT: VITALS: BP 122/73 Pulse 76 Temp 97.5 Resp 18 Ht 6' 1 (1.85m) Wt 210 lb (95.3kg) SpO2 100% BMI 27.71 kg/(m^2). Diagnostic tests reviewed for today's visit: Lab Value Units Date High Low HB No results within date range. HCT No results within date range. WBC No results within date range. PLT No results within date range. NA No results within date range. K No results within date range. GLUC No results within date range. BUN No results within date range. CREAT No results within date range. PTSEC No results within date range. INR No results within date range. APTT No results within date range. ALT No results within date range. AST No results within date range. TBILI No results within date range. TSH No results within date range. Lab Value Units Date High Low HCGQT No results within date range. UHCG No results within date range. HCG, BODY* No results within date range. Lab Value Units Date High Low ABORHD No results within date range. ABSCREEN No results within date range. No results found for: HBA1C No results found for this or any previous visit (from the past 8760 hour(s)). No results found for this or any previous visit (from the past 03247 hour(s)). Assessment No problem-specific Assessment & Plan notes found for this encounter. Giron Activity Status Index: METS: Climb a flight of stairs or walk up a hill (5.50 METs) DASI Score: 5.5 Patient denies any chest pain or undue shortness of breath with the above physical activity. STOP-Bang Score: Male patient BMI less than or equal to 35 kg/m^2 Patient 50 years old or younger STOP-Bang Score: 1 [id number] Score: Age: <65 Sex: male [id number] Score: 0 ARISCAT Score: Age: <=50 Preoperative SpO2: >=96% Respiratory infection in the last month: No Surgical incision: peripheral Duration of surgery: <2 hrs Emergency procedure: No ARISCAT Score: 0 ANESTHESIA FINDINGS: Intubation History: No history of difficult intubation. No abnormal airway history Significant Anesthesia Considerations: none Airway History: No history of difficult airway No abnormal airway history I - PHYSICAL EVALUATION AIRWAY Patient intubated: No. Hairston present: yes DENTAL Dental findings: missing tooth/teeth and poor dentition. Dentures, upper: partial. II - ANESTHESIA PLAN Anesthetic Plan: general Beta Roxie Monitoring Plan Post Procedure Analgesic Plan Prepared for Surgery: . No consults pending CONSULTS: Planned Anesthetic: general The Following Tests/Procedures Have Been Initiated: No orders of the defined types were placed in this encounter. Implantable Devices: hardware to right wrist, right femur and right knee Patient has the following medical conditions which may affect trey-operative course Tobacco use- occasional smoker, history of snuff use Assessment/Plan PLAN Planned Procedure: Procedure(s): INCISION, DEEP, WITH OPENING OF BONE CORTEX, FEMUR OR KNEE (Right) The Following Tests/Procedures Have Been Initiated: No pending orders per surgeon Instructions Given to Patient: Instructions located in the after visit summary. Patient given verbal and written preop instructions and voices comprehension and compliance. States he has a wheelchair to use at home postop. Encouraged to bring crutches or walker on DOS if he has them. SIGNATURE: Carol Mayer APRN.CNP PATIENT NAME: Milka Zamudio DATE: February 02, 2022 TIME: 7:35 AM PAGER/CONTACT #: documented in this encounter [facility] 02-02-2022 Instructions Carol Mayer APRN.CNP - 02/02/2022 7:38 AM EST PATIENT PREOPERATIVE INSTRUCTIONS * has scheduled you for your procedure at this surgery center: [facility]: [phone], [address] [address] Please enter through the main entrance and proceed to the blue elevators. The surgery [facility] is located to the left of the blue elevators. Please read below carefully for your personalized instructions. Arrival Time for Surgery: DATE: 02/12/22 OR TIME: 8 am CHECK IN TIME: 6 am Please be aware that emergency situations arise, which may delay or change your surgical time. If this happens, we will notify you as soon as possible and regret any inconvenience. Dietary Restrictions: - Nothing to eat or drink after midnight except for a sip of water with approved medications. Do not eat or drink anything, including water and coffee, on the morning of your surgery. This is important because if you do, your surgery may have to be cancelled Blood Thinning Medications: - Stop NSAIDS (Ibuprofen, Advil, Aleve, Motrin, Celebrex, Mobic, etc.) 7 days before surgery, as directed by your surgeon. IF YOU TAKE ANY OF THE FOLLOWING BLOOD THINNERS, PLEASE CONTACT YOUR SURGEON AND THE PHYSICIAN WHO PRESCRIBES IT FOR YOU IN ORDER TO GET PERIOPERATIVE INSTRUCTIONS SOON POSSIBLE. BLOOD THINNERS: Aspirin , Coumadin, Plavix, Eliquis, Pradaxa, Xarelto, Lovenox, Brilinta, Effient, Savaysa, Arixtra, etc - Stop Vitamin E, fish oil, multivitamins, Marijuana, CBD oil and other over the counter herbals and dietary supplements 7 days before surgery. ?-This would not apply to cancer patients who are prescribed Marinol or any other prescription form on marijuana or CBD. Medications: Approved medications to take the morning of surgery with a sip of water: BP, Heart, thyroid, psych, seizure, and pain medications excluding NSAIDS. Use inhalers as prescribed. Please bring inhalers. Please follow up with the provider that manages your diabetes and how to prepare you for surgery. If you are taking the following medications for Type 2 diabetes: Canagliflozin (INVOKANA), dapagliflozin (FARXIGA), and empagliflozin (JARDIANCE) should each be discontinued at least 3 days before scheduled surgery. Ertugliflozin (STEGLATRO) should be discontinued at least four days before scheduled surgery. - If you have a stimulator, implant or pump that requires a remote please bring the remote with you day of surgery. Pain Medications: - Please continue your current pain medications. If you take any medications for erectile dysfunction-Cialis (Tadalafil), Levitra, Staxyn (Vardenafil) Viagra (Sildenenafil please do not take these for 48 hours before surgery. Medications to be taken with small amount of fluid on the morning of surgery: If you start any new medications after today's visit, please contact the surgeon's office. Important Reminders: - If you use CPAP/BIPAP, bring the machine with you to the surgery center. - If you are prescribed inhalers for breathing, continue using them AND bring them to the surgery center. - Candy, mints, gum and tobacco products are NOT permitted the morning of surgery. - Hearing aids, dentures and glasses may be worn the morning of surgery. - NO jewelry, body piercings, makeup, hairpins or contacts are to be worn the day of surgery. -Oral hygiene and a shower or bath is required the evening before or the morning of surgery. Use the Hibiclens body wash supplied to you along with the instruction. - NO lotion, creams, powders or deodorants on the skin the day of surgery -Wear loose, comfortable clothing that will accommodate bandages. -Your length of stay will be determined by your surgeon - You will need to have someone else (Family or friend) drive you home once discharged from the hospital. You are not allowed to drive yourself home after surgery. - YOU MUST HAVE A RESPONSIBLE FINISHER SPECIAL STOCKS TAKE YOU HOME. A BRIDAL SERVICE SALES AND MANAGEMENT, CAB OR UBER FINISHER SPECIAL STOCKS CANNOT BE MADE A RESPONSIBLE FINISHER SPECIAL STOCKS. - We recommend that a responsible person stays with you overnight to take care of you. - You cannot stay in a hotel alone after outpatient surgery. You will not be permitted to have your surgery, if you do not have someone to take care of you. Given COVID 19 pandemic, one visitor is allowed to be in the hospital. Visitors will be required to have their temperature taken on arrival at the main entrance of the building. Visitors will be asked to wear a mask that covers their mouth and nose at all times. No visitors are permitted in the recovery room. Post surgery, the surgeon will call the visitor for the update The visitor will be called by the PACU staff for discharge instructgions and will then be instructed for sheepskin pickler directions. *Call your surgeon's office if covid test has been ordered to confirm this is needed If you develop symptoms such as a fever, cold, or flu, or have other changes to your health within TWO DAYS of scheduled surgery or the morning of surgery, please contact the surgery center above. Personal Belongings: - Leave ALL valuables and money at home or with family members. - You will need a form of ID and insurance card to check in the morning of surgery. - You will have to wear a hospital gown during your stay but if you wish to bring undergarments for after surgery you may. - Ambulatory surgery center [facility]- orthopedic patients needing a walker should bring the walker into the building day of surgery. - Orthopedic patients having surgery [facility] listed as outpatient should bring their walker into the building. - Orthopedic patients having surgery [facility] listed as to be admitted should leave their walkers in the car or with a family member. Carol Mayer APRN.CNP 02/02/22 documented in this encounter [facility] 01-19-2022 Miscellaneous Notes Called patient to confirm pretesting and post op appointments. Left a message. Avril Layne January 19, 2022 3:36 PM documented in this encounter [facility] 12-30-2021 Note HNO ID: [id number] Author: Faviola Palmer MD Service: ? Author Type: Physician Type: Progress Notes Filed: 12/30/2021 10:03 AM Note Text: Chief complaint: Right knee pain. History of present illness: Patient is known to myself. Here for follow-up regarding his right patella fracture as well as wound. He states his wound and infection has been improving. Has been taking care of this on his own at home. He also states he has some pain going up and down stairs. Denies any new injuries. For the patient's past medical history, past surgical history, medications, allergies, family history, social history, and review of systems please refer to medical history in chart. Physical exam: The patient is alert and oriented no acute distress. Answers questions appropriate has a normal affect. Examination of the right lower extremity shows full knee range of motion. Small wound inferior aspect of the patella. Small surrounding erythema. Minimal drainage. Extensor mechanism intact. Assessment: #1 Right patella fracture. Plan: At this time he would like to refrain from any operation. I stated if his infection gets worse, he is to contact the office and we will get this scheduled for removal. We did discuss the operation if necessary. This would be using the same incision and removing the hardware placed in the patella along with irrigation debridement. To be an outpatient procedure. He expressed understanding. 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 We will see him back on as-needed basis. If there is any questions or concerns in the future, he will contact the office. Questions answered. [facility] 12-30-2021 History of Presen t illness Narrative Chief complaint: Right knee pain. History of present illness: Patient is known to myself. Here for follow-up regarding his right patella fracture as well as wound. He states his wound and infection has been improving. Has been taking care of this on his own at home. He also states he has some pain going up and down stairs. Denies any new injuries. For the patient's past medical history, past surgical history, medications, allergies, family history, social history, and review of systems please refer to medical history in chart. Physical exam: The patient is alert and oriented no acute distress. Answers questions appropriate has a normal affect. Examination of the right lower extremity shows full knee range of motion. Small wound inferior aspect of the patella. Small surrounding erythema. Minimal drainage. Extensor mechanism intact. Assessment: #1 Right patella fracture. Plan: At this time he would like to refrain from any operation. I stated if his infection gets worse, he is to contact the office and we will get this scheduled for removal. We did discuss the operation if necessary. This would be using the same incision and removing the hardware placed in the patella along with irrigation debridement. To be an outpatient procedure. He expressed understanding. 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 We will see him back on as-needed basis. If there is any questions or concerns in the future, he will contact the office. Questions answered. documented in this encounter [facility] 10-28-2021 Note HNO ID: [id number] Author: Faviola Palmer MD Service: ? Author Type: Physician Type: Progress Notes Filed: 10/28/2021 1:46 PM Note Text: Chief complaint: Right knee pain and swelling. History of present illness: The patient is known to myself. History of patella fracture as well as femur and wrist fracture. Approximate 6 weeks ago he landed on his right knee. Since that time he has been having some pain and swelling. Did have some drainage and some erythema as well as redness and swelling. This has gotten better. He comes in today for evaluation. Denies any systemic symptoms such as fevers or chills. For the patient's past medical history, past surgical history, medications, allergies, family history, social history, and review of systems please refer to medical history in chart. Physical exam: The patient is alert and oriented no acute distress. Answers questions appropriate. Has a normal affect. Ambulates without assistance. Satisfactory gait. Examination right lower extremity shows well-healed incision. Small area of erythema and swelling midportion of the incision. Some mild tenderness palpation over prominent hardware. Tenderness palpation over swelling and erythema. No drainage. Assessment: #1 right patella fracture with superficial skin infection. Plan: This time we discussed irrigation debridement as well as hardware removal. He would like this done. If he could push this off to the new year he would like this for his work schedule. We can attempt to do this. A prescription for doxycycline was provided. We will monitor his symptoms. If his symptoms worsen, we would need to do something sooner surgically. He expressed understanding. I will see him back in December. If there is any questions or concerns prior to his next encounter, he will contact the office. Questions answered. [facility] 10-28-2021 Note HNO ID: [id number] Author: Kelly Avendaño LPN Service: ? Author Type: ? Type: Progress Notes Filed: 10/28/2021 1:46 PM Note Text: REVIEW OF SYSTEMS: GENERAL: Well developed, well nourished. No acute distress PAIN: Pain 02/24 CARDIOVASCULAR: Negative for chest pain, leg swelling and palpations. MSK: Positive for joint swelling SKIN: redness right knee NEURO: Negative for seizure, trauma, numbness/tingling of extremities. ENDOCRINE: Negative for diabetic associated symptoms HEMATOLOGY: Negative for excessive bleeding, clots, bleeding disorders. [facility] 10-28-2021 History of Presen t illness Narrative Chief complaint: Right knee pain and swelling. History of present illness: The patient is known to myself. History of patella fracture as well as femur and wrist fracture. Approximate 6 weeks ago he landed on his right knee. Since that time he has been having some pain and swelling. Did have some drainage and some erythema as well as redness and swelling. This has gotten better. He comes in today for evaluation. Denies any systemic symptoms such as fevers or chills. For the patient's past medical history, past surgical history, medications, allergies, family history, social history, and review of systems please refer to medical history in chart. Physical exam: The patient is alert and oriented no acute distress. Answers questions appropriate. Has a normal affect. Ambulates without assistance. Satisfactory gait. Examination right lower extremity shows well-healed incision. Small area of erythema and swelling midportion of the incision. Some mild tenderness palpation over prominent hardware. Tenderness palpation over swelling and erythema. No drainage. Assessment: #1 right patella fracture with superficial skin infection. Plan: This time we discussed irrigation debridement as well as hardware removal. He would like this done. If he could push this off to the new year he would like this for his work schedule. We can attempt to do this. A prescription for doxycycline was provided. We will monitor his symptoms. If his symptoms worsen, we would need to do something sooner surgically. He expressed understanding. I will see him back in December. If there is any questions or concerns prior to his next encounter, he will contact the office. Questions answered. REVIEW OF SYSTEMS: GENERAL: Well developed, well nourished. No acute distress PAIN: Pain 02/24 CARDIOVASCULAR: Negative for chest pain, leg swelling and palpations. MSK: Positive for joint swelling SKIN: redness right knee NEURO: Negative for seizure, trauma, numbness/tingling of extremities. ENDOCRINE: Negative for diabetic associated symptoms HEMATOLOGY: Negative for excessive bleeding, clots, bleeding disorders. documented in this encounter [facility] 10-17-2021 Miscellaneous Notes Called the patient and informed him Dr. Palmer would like to see him back in office for his worsening wound. Patient was agrreable, but does not want to move forward with surgery until February. He has to get financially cleared through [facility] for the appointment and will call me back once he is so we can bring him back into the office. Joey Ware [employer] October 17, 2021 9:42 AM Images from the original note were not included. Faviola Palmer MD You 14 hours ago (5:19 PM) I will see him in office. The patient's home therapist, Delia [phone], called with concerns about the patient's wound. She states it's getting worse and he is developing pain beneath the hardware. 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 She wants to know if an antibiotic could be called in or if you need to see him again in office? Joey Ware [place] [facility] October 16, 2021 3:43 PM documented in this encounter [facility] 09-09-2021 Note HNO ID: [id number] Author: Faviola Palmer MD Service: ? Author Type: Physician Type: Progress Notes Filed: 09/09/2021 10:03 AM Note Text: Chief complaint: Open wound right knee. History of present illness: The patient returns today follow-up regarding his open right distal radius, right femur fracture and right patella fracture. States he developed an infection over his right patella. He has been doing local wound care. He states it is getting better. For the patient's past medical history, past surgical history, medications, allergies, family history, social history, and review of systems please refer to medical history in chart. Physical exam: Patient is alert and oriented no acute distress. Answers all questions appropriate. Has a normal affect. Examination right upper extremity shows full range of motion. Good pronation supination. Good wrist flexion and extension. He can flex and extend all digits including thumb. Examination right lower extremity shows satisfactory knee range of motion. No signs of overt infection at this time. Does have an area of the epithelialization midportion of patella. No surrounding cellulitis. No purulent drainage. Imaging: Please refer to the radiographic interpretation Assessment: #1 right distal radius fracture. #2 right femur fracture. #3 right patella fracture. Plan: At this time he will continue his local wound care is this is improving. He can perform activities as tolerated. We did discuss the potential need for hardware removal in the future but this would involve a large incision. He prefer not to have this. I will see him back on an as-needed basis. If there is any questions or concerns or future, he will contact the office. Questions answered. [facility] 09-09-2021 History of Presen t illness Narrative Chief complaint: Open wound right knee. History of present illness: The patient returns today follow-up regarding his open right distal radius, right femur fracture and right patella fracture. States he developed an infection over his right patella. He has been doing local wound care. He states it is getting better. For the patient's past medical history, past surgical history, medications, allergies, family history, social history, and review of systems please refer to medical history in chart. Physical exam: Patient is alert and oriented no acute distress. Answers all questions appropriate. Has a normal affect. Examination right upper extremity shows full range of motion. Good pronation supination. Good wrist flexion and extension. He can flex and extend all digits including thumb. Examination right lower extremity shows satisfactory knee range of motion. No signs of overt infection at this time. Does have an area of the epithelialization midportion of patella. No surrounding cellulitis. No purulent drainage. Imaging: Please refer to the radiographic interpretation Assessment: #1 right distal radius fracture. #2 right femur fracture. #3 right patella fracture. Plan: At this time he will continue his local wound care is this is improving. He can perform activities as tolerated. We did discuss the potential need for hardware removal in the future but this would involve a large incision. He prefer not to have this. I will see him back on an as-needed basis. If there is any questions or concerns or future, he will contact the office. Questions answered. documented in this encounter [facility] 05-20-2021 Note HNO ID: [id number] Author: Faviola Palmer MD Service: ? Author Type: Physician Type: Progress Notes Filed: 05/20/2021 10:22 AM Note Text: Chief complaint: Right knee and wrist pain. This present office: The patient returns today follow-up Varsha his right distal radius fracture, right patella fracture and right femur fracture. He had surgical fixation on 01/22/2021. Overall he is doing well. Still with some stiffness in his right knee. Also has the most difficulty with extension of his wrist. It also hurts to kneel on his right knee. Overall he is doing well. He is very pleased with his progress. He is now back to work. For the patient's past medical history, past surgical history, medications, allergies, family history, social history, and review of systems please refer to medical history in chart. Physical exam: The patient is alert and oriented no acute distress. Answers all questions appropriately. Is a normal affect. He ambulates without assistance. Satisfactory gait. Examination right lower extremity shows extensor mechanism to be intact. All wounds well-healed around his knee. He can flex approximately 110 degrees. No prominent hardware. Examination right upper extremity shows it to be neuro vas intact. Good pronation supination. Good wrist flexion. Decreased wrist extension. He can flex and extend all digits including thumb. Imaging: Please refer to the radiographic interpretation Assessment: #1Right distal radius fracture. #2 right femoral shaft fracture. #3 right patella fracture. Plan: At this time he is doing well. We discussed potential need for hardware removal of his knee. This will be based on symptoms only. We discussed the use of kneepads while kneeling. No activity restrictions. He would like to see me back on as-needed basis. If there is any questions or concerns in the future, he will contact the office. All questions answered. [facility] 05-20-2021 History of Presen t illness Narrative Chief complaint: Right knee and wrist pain. This present office: The patient returns today follow-up Varsha his right distal radius fracture, right patella fracture and right femur fracture. He had surgical fixation on 01/22/2021. Overall he is doing well. Still with some stiffness in his right knee. Also has the most difficulty with extension of his wrist. It also hurts to kneel on his right knee. Overall he is doing well. He is very pleased with his progress. He is now back to work. For the patient's past medical history, past surgical history, medications, allergies, family history, social history, and review of systems please refer to medical history in chart. Physical exam: The patient is alert and oriented no acute distress. Answers all questions appropriately. Is a normal affect. He ambulates without assistance. Satisfactory gait. Examination right lower extremity shows extensor mechanism to be intact. All wounds well-healed around his knee. He can flex approximately 110 degrees. No prominent hardware. Examination right upper extremity shows it to be neuro vas intact. Good pronation supination. Good wrist flexion. Decreased wrist extension. He can flex and extend all digits including thumb. Imaging: Please refer to the radiographic interpretation Assessment: #1Right distal radius fracture. #2 right femoral shaft fracture. #3 right patella fracture. Plan: At this time he is doing well. We discussed potential need for hardware removal of his knee. This will be based on symptoms only. We discussed the use of kneepads while kneeling. No activity restrictions. He would like to see me back on as-needed basis. If there is any questions or concerns in the future, he will contact the office. All questions answered. documented in this encounter [facility] 04-08-2021 Note HNO ID: [id number] Author: Jak Moreno PA-C Service: ? Author Type: Physician [employer] Type: Progress Notes Filed: 04/08/2021 10:47 AM Note Text: Orthopedic Post Operative Note DOS: 01/22/2021 Procedure: Status post ORIF right patella, ORIF right wrist, intramedullary nailing right femur. Surgeon: Spencer MCDERMOTT Subjective: Patient is a 25 years old seen in follow up on POD 78. Milka is doing well and is accompanied with family. Together they explained that he is continuing to make progress. He still using a range of motion brace locked at 40 degrees flexion. He is working on daily flexion and extension. He denies any numbness or tingling to the right lower extremity or the right hand. All incisions are healing well without signs of drainage he denies fevers or chills Resp 18 Ht 6' 1 (1.85m) Wt 195 lb (88.5kg) BMI 25.73 kg/(m2). Exam: Alert and oriented 25-year-old male in no apparent distress Inspection of the right wrist reveals healing scar through the ventral wrist without signs of breakdown hand cascades into a fist normally full range of motion minimal tenderness to the distal radius fixation plate neurovascular intact right hand Inspection of the right knee shows healed surgical incision without signs of breakdown or drainage range of motion is 65 degrees flexion 0 degrees of extension with minimal lag quad is palpated and is soft throughout all compartments positive FHL/EHL of the right great toe brisk capillary refill less than 2 seconds 2+ dorsalis pedis pulse Diagnostic Imagin views of the right wrist shows cortical fixation plate in good position reduction of the fracture is anatomic multiple cortical school screws are in good position without signs of loosening 2 views of the right knee show several cutaneous wires and pins through the patella with good anatomic reduction and without signs of displacement from last radiographs. 2 views of the right femur show intramedullary nailing securing the distal third femoral fracture there is one cortical screw in good position and without signs of loosening there is callus formation seen around the fracture site. No malrotation is appreciated Assessment:S/P polytrauma, ORIF right wrist right patella, and intramedullary nailing of the right femur. Doing well and making good post operative recovery. Plan: Functional Plan: Good discussion with Milka and his family. He is continuing to show showing signs of improvement. Assistance Devices: Discontinue range of motion brace Physical/Occupational Therapy: Renewal of physical therapy for evaluation and treatment to increase range of motion's and strength of the hip knee and right wrist. Wound Care: N/A Pain Control: Zhxv-roo-somsnqy analgesics Fragility Fracture: Minimal Additional: Patient seen and radiographs reviewed with Dr. Palmer. We will begin full weightbearing as tolerated and discontinue the [place] brace. With the assistance of physical therapy will work for flexion of the knee and strength and extension Follow-up in 6 weeks with repeat x-rays of the right wrist right knee and right femur Jak Moreno PA-C [facility] 03-04-2021 Note HNO ID: [id number] Author: Faviola Palmer MD Service: ? Author Type: Physician Type: Progress Notes Filed: 03/04/2021 10:06 AM Note Text: Subjective: Patient returns today follow-up in his open right distal radius fracture., Right femur fracture, right patella fracture. Overall doing well. He states he has a therapist coming to his house today. Objective: Examination of the right upper extremity shows it to be neuro vas intact. Decreased range of motion right wrist. Incision healing well. Examination right lower extremity shows muscle atrophy to be present. All wounds healing well. He does ambulate without assistance. He is in a locked knee brace. Imaging: Please refer to the radiographic interpretation Assessment: #1 right distal radius fracture. #2 right femur fracture. #3 right patella fracture. Plan: At this time he can be weight-bear as tolerated all extremities. He will work on range of motion for all extremities. A new prescription for therapy was provided. I will see him back in 4 weeks. [id number] pain medication. If is any concerns or questions prior to the next encounter, they will contact the office. Questions answered. [facility] 03-04-2021 Note HNO ID: [id number] Author: Kelly Avendaño LPN Service: ? Author Type: ? Type: Progress Notes Filed: 03/04/2021 10:06 AM Note Text: REVIEW OF SYSTEMS: GENERAL: Well developed, well nourished. No acute distress PAIN: Negative for pain, history of chronic pain or current treatment for chronic pain conditions CARDIOVASCULAR: Negative for chest pain, leg swelling and palpations. MSK: Negative for joint swelling SKIN: Negative for lesions, rash, itching, metal sensitivity NEURO: Trauma fall ENDOCRINE: Negative for diabetic associated symptoms HEMATOLOGY: Negative for excessive bleeding, clots, bleeding disorders. [facility] 01-22-2021 History of Past i llness Narrative Problem Noted Date Resolved Date Injury resulting from fall from height 01/25/2021 Closed dislocation of mandible 01/22/2021 0 03/05/2021 Closed displaced comminuted fracture of shaft of right femur 01/22/2021 01/25/2021 Closed comminuted fracture of right patella /0 09/202001/25/2021 Open fracture of distal end of radius 01/22/2021 01/25/2021 Closed nondisplaced fracture of styloid process of right ulna 01/22/2021 01/25/2021 Blood in ear canal, bilateral 01/22/2021 Facial laceration 01/22/2021 01/25/2021 Fall 01/22/2021 01/25/2021 documented as of this encounter (statuses as of 05/20/2021) [facility]12-08-2021 History of Past illness Narrative* Problem Noted Date Resolved Date Injury resulting from fall from height 01/25/2021 Closed dislocation of mandible 01/22/2021 0 03/05/2021 Closed displaced comminuted fracture of shaft of right femur 01/22/2021 01/25/2021 Closed comminuted fracture of right patella 12/0 09/202001/25/2021 Open fracture of distal end of radius 01/22/2021 01/25/2021 Closed nondisplaced fracture of styloid process of right ulna 01/22/2021 01/25/2021 Blood in ear canal, bilateral 01/22/2021 Facial laceration 01/22/2021 01/25/2021 Fall 01/22/2021 01/25/2021 documented as of this encounter (statuses as of 09/09/2021) [facility] History of Past illness Narrative* Problem Noted Date Resolved Date Injury resulting from fall from height 01/25/2021 Closed dislocation of mandible 01/22/2021 0 03/05/2021 Closed displaced comminuted fracture of shaft of right femur 01/22/2021 01/25/2021 Closed comminuted fracture of right patella 12/0 09/202001/25/2021 Open fracture of distal end of radius 01/22/2021 01/25/2021 Closed nondisplaced fracture of styloid process of right ulna 01/22/2021 01/25/2021 Blood in ear canal, bilateral 01/22/2021 Facial laceration 01/22/2021 01/25/2021 Fall 01/22/2021 01/25/2021 documented as of this encounter (statuses as of 10/17/2021) [facility] History of Past illness Narrative* Problem Noted Date Resolved Date Injury resulting from fall from height 01/25/2021 Closed dislocation of mandible 01/22/2021 0 03/05/2021 Closed displaced comminuted fracture of shaft of right femur 01/22/2021 01/25/2021 Closed comminuted fracture of right patella 12/0 09/202001/25/2021 Open fracture of distal end of radius 01/22/2021 01/25/2021 Closed nondisplaced fracture of styloid process of right ulna 01/22/2021 01/25/2021 Blood in ear canal, bilateral 01/22/2021 Facial laceration 01/22/2021 01/25/2021 Fall 01/22/2021 01/25/2021 documented as of this encounter (statuses as of 10/28/2021) [facility] History of Past illness Narrative* Problem Noted Date Resolved Date Injury resulting from fall from height 01/25/2021 Closed dislocation of mandible 01/22/2021 0 03/05/2021 Closed displaced comminuted fracture of shaft of right femur 01/22/2021 01/25/2021 Closed comminuted fracture of right patella 12/0 09/202001/25/2021 Open fracture of distal end of radius 01/22/2021 01/25/2021 Closed nondisplaced fracture of styloid process of right ulna 01/22/2021 01/25/2021 Blood in ear canal, bilateral 01/22/2021 Facial laceration 01/22/2021 01/25/2021 Fall 01/22/2021 01/25/2021 documented as of this encounter (statuses as of 12/30/2021) [facility] History of Past illness Narrative* Problem Noted Date Resolved Date Injury resulting from fall from height 01/25/2021 Closed dislocation of mandible 01/22/2021 0 03/05/2021 Closed displaced comminuted fracture of shaft of right femur 01/22/2021 01/25/2021 Closed comminuted fracture of right patella 12/0 09/202001/25/2021 Open fracture of distal end of radius 01/22/2021 01/25/2021 Closed nondisplaced fracture of styloid process of right ulna 01/22/2021 01/25/2021 Blood in ear canal, bilateral 01/22/2021 Facial laceration 01/22/2021 01/25/2021 Fall 01/22/2021 01/25/2021 documented as of this encounter (statuses as of 01/16/2022) [facility] History of Past illness Narrative* Problem Noted Date Resolved Date Injury resulting from fall from height 01/25/2021 Closed dislocation of mandible 01/22/2021 0 03/05/2021 Closed displaced comminuted fracture of shaft of right femur 01/22/2021 01/25/2021 Closed comminuted fracture of right patella 12/0 09/202001/25/2021 Open fracture of distal end of radius 01/22/2021 01/25/2021 Closed nondisplaced fracture of styloid process of right ulna 01/22/2021 01/25/2021 Blood in ear canal, bilateral 01/22/2021 Facial laceration 01/22/2021 01/25/2021 Fall 01/22/2021 01/25/2021 documented as of this encounter (statuses as of 01/19/2022) [facility] History of Past illness Narrative* Problem Noted Date Resolved Date Injury resulting from fall from height 01/25/2021 Closed dislocation of mandible 01/22/2021 0 03/05/2021 Closed displaced comminuted fracture of shaft of right femur 01/22/2021 01/25/2021 Closed comminuted fracture of right patella 12/0 09/202001/25/2021 Open fracture of distal end of radius 01/22/2021 01/25/2021 Closed nondisplaced fracture of styloid process of right ulna 01/22/2021 01/25/2021 Blood in ear canal, bilateral 01/22/2021 Facial laceration 01/22/2021 01/25/2021 Fall 01/22/2021 01/25/2021 documented as of this encounter (statuses as of 02/02/2022) [facility] History of Past illness Narrative* Problem Noted Date Resolved Date Injury resulting from fall from height 01/25/2021 Closed dislocation of mandible 01/22/2021 0 03/05/2021 Closed displaced comminuted fracture of shaft of right femur 01/22/2021 01/25/2021 Closed comminuted fracture of right patella 12/0 09/202001/25/2021 Open fracture of distal end of radius 01/22/2021 01/25/2021 Closed nondisplaced fracture of styloid process of right ulna 01/22/2021 01/25/2021 Blood in ear canal, bilateral 01/22/2021 Facial laceration 01/22/2021 01/25/2021 Fall 01/22/2021 01/25/2021 documented as of this encounter (statuses as of 02/18/2022) [facility] History of Past illness Narrative* Problem Noted Date Resolved Date Injury resulting from fall from height 01/25/2021 Closed dislocation of mandible 01/22/2021 0 03/05/2021 Closed displaced comminuted fracture of shaft of right femur 01/22/2021 01/25/2021 Closed comminuted fracture of right patella 09/202001/25/2021 Open fracture of distal end of radius 01/22/2021 01/25/2021 Closed nondisplaced fracture of styloid process of right ulna 01/22/2021 01/25/2021 Blood in ear canal, bilateral 01/22/2021 Facial laceration 01/22/2021 01/25/2021 Fall 01/22/2021 01/25/2021 documented as of this encounter (statuses as of 02/27/2022) [facility] Diagnosis Other type I or II open intra-articular fracture of distal end of right radius with routine healing, subsequent encounter- Primary Other closed fracture of shaft of right femur with routine healing, subsequent encounter Other closed fracture of right patella with routine healing, subsequent encounter documented in this encounter [facility]* Diagnosis Other type I or II open intra-articular fracture of distal end of right radius with routine healing, subsequent encounter- Primary Other closed fracture of shaft of right femur with routine healing, subsequent encounter Other closed fracture of right patella with routine healing, subsequent encounter [facility] Diagnosis Other closed fracture of shaft of right femur with routine healing, subsequent encounter- Primary Other closed fracture of right patella with routine healing, subsequent encounter Other type I or II open intra-articular fracture of distal end of right radius with routine healing, subsequent encounter [facility]* Diagnosis Other closed fracture of right patella with routine healing, subsequent encounter- Primary [facility]* Diagnosis 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, initial encounter ([facility])- Primary [facility]* Diagnosis Preop examination [Z01.818 (ICD-10-CM)]- Primary Preoperative examination, unspecified 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, initial encounter ([facility]) [T84.7XXA (ICD-10-CM)] Smoker [F17.200 (ICD-10-CM)] Tobacco use disorder 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, initial encounter ([facility]) documented in this encounter [facility] note* Diagnosis Other closed fracture of right patella with routine healing, subsequent encounter- Primary documented in this encounter [facility] note* Diagnosis Acute pain of right knee- Primary Acute pain of right knee documented in this encounter [facility] note* Diagnosis Acute pain of right knee documented in this encounter [facility] note* Diagnosis Effusion of right knee- Primary Effusion of lower leg joint Acute pain of right knee Patellofemoral arthritis of right knee Post-traumatic osteoarthritis of right knee Secondary localized osteoarthrosis, lower leg documented in this encounter [facility] for referral (narrative)* Diagnostic Procedure Only (Routine) - Pending Review Specialty Diagnoses / Procedures Referred By Luna barber Referred To Contact XR IMAGING Diagnoses Other closed fracture of shaft of right femur with routine healing, subsequent encounter Other closed fracture of right patella with routine healing, subsequent encounter Procedures XR FEMUR GENERAL 2V AP/LAT RIGHT RADIOLOGIC EXAMINATION FEMUR MINIMUM 2 VIEWS Faviola Palmer MD [address] [place] [id number] Xr Imaging Referral ID Status Reason Start Date Expiration Date Visits Requested Visits Authorized [id number] Pending Review Auto-Generat ed Referral 05/20/2021 06/17/2022 1 1 * Diagnostic Procedure Only (Routine) - Pending Review Specialty Diagnoses / Procedures Referred By Luna t Referred To Contact XR IMAGING Diagnoses Other type I or II open intra-articular fracture of distal end of right radius with routine healing, subsequent encounter Procedures XR WRIST GENERAL 3V PA/LAT/OBL RIGHT RADEX WRIST COMPLETE MINIMUM 3 VIEWS Faviola Palmer MD [address] [place] [phone] Xr Imaging Referral ID Status Reason Start Date Expiration Date Visits Requested Visits Authorized [id number] Pending Review Auto-Generat ed Referral 05/20/2021 06/17/2022 1 1 [facility] for referral (narrative)* Diagnostic Procedure Only (Routine) - Pending Review Specialty Diagnoses / Procedures Referred By Contac t Referred To Contact XR IMAGING Diagnoses Other type I or II open intra-articular fracture of distal end of right radius with routine healing, subsequent encounter Procedures XR WRIST GENERAL 3V PA/LAT/OBL RIGHT RADEX WRIST COMPLETE MINIMUM 3 VIEWS Faviola Palmer MD [address] [place] [address] Xr Imaging Referral ID Status Reason Start Date Expiration Date Visits Requested Visits Authorized [id number] Pending Review Auto-Generat ed Referral 09/09/2021 10/07/2022 1 1 * Diagnostic Procedure Only (Routine) - Pending Review Specialty Diagnoses / Procedures Referred By Contac t Referred To Contact XR IMAGING Diagnoses Other closed fracture of shaft of right femur with routine healing, subsequent encounter Other closed fracture of right patella with routine healing, subsequent encounter Procedures XR FEMUR GENERAL 2V AP/LAT RIGHT RADIOLOGIC EXAMINATION FEMUR MINIMUM 2 VIEWS Faviola Palmer MD [address] [place] [id number] Xr Imaging Referral ID Status Reason Start Date Expiration Date Visits Requested Visits Authorized [id number] Pending Review Auto-Generat ed Referral 09/09/2021 10/07/2022 1 1 [facility] for visit Narrative* Diagnostic Procedure Only (Urgent) - Closed Specialty Diagnoses / Procedures Referred By Contac t Referred To Contact XR IMAGING Diagnoses Acute pain of right knee Procedures XR KNEE GENERAL 4V AP BOTH/PA BOTH/LAT/MERC RIGHT RADIOLOGIC EXAM KNEE COMPLETE 4/MORE VIEWS Héctor Arroyo, DIGITAL PRODUCT MANAGER.SENIOR DATA ANALYST [address] [place] [address] Phone: tel: fax: [place] [phone] Referral ID Status Reason Start Date Expiration Date V isits Requested Visits Authorized [id number] Closed Auto-Generate d Referral 05/18/2024 06/17/2025 1 1 [facility] Advance Directives No Advanced Directives Records FoundDocuments on File Type Date Recorded 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 Manager Expl 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 Advance Directive(s) 01/29/2021 1:47 PM Advance Directive(s) 01/22/2021 3:10 PM Summary Purpose Family History No Family History Records FoundNo Family History Records Found Additional Source Comments Source Comments (unrecognize d section and content) In the event this informatio n is protected by the Federal Confidentiality of Alcohol and Drug Abuse Patient Records regulations: The Federal rules restrict any use of the information to criminally investigate or prosecute any alcohol or drug abuse patient.[facility] the event this information is protected by the Federal Confidentiality of Alcohol and Drug Abuse Patient Records regulations: The Federal rules restrict any use of the information to criminally investigate or prosecute any alcohol or drug abuse patient.[facility] the event this information is protected by the Federal Confidentiality of Alcohol and Drug Abuse Patient Records regulations: The Federal rules restrict any use of the information to criminally investigate or prosecute any alcohol or drug abuse patient.[facility] the event this information is protected by the Federal Confidentiality of Alcohol and Drug Abuse Patient Records regulations: The Federal rules restrict any use of the information to criminally investigate or prosecute any alcohol or drug abuse patient.[facility] the event this information is protected by the Federal Confidentiality of Alcohol and Drug Abuse Patient Records regulations: The Federal rules restrict any use of the information to criminally investigate or prosecute any alcohol or drug abuse patient.[facility] the event this information is protected by the Federal Confidentiality of Alcohol and Drug Abuse Patient Records regulations: The Federal rules restrict any use of the information to criminally investigate or prosecute any alcohol or drug abuse patient.[facility] the event this information is protected by the Federal Confidentiality of Alcohol and Drug Abuse Patient Records regulations: The Federal rules restrict any use of the information to criminally investigate or prosecute any alcohol or drug abuse patient.[facility] the event this information is protected by the Federal Confidentiality of Alcohol and Drug Abuse Patient Records regulations: The Federal rules restrict any use of the information to criminally investigate or prosecute any alcohol or drug abuse patient.[facility] the event this information is protected by the Federal Confidentiality of Alcohol and Drug Abuse Patient Records regulations: The Federal rules restrict any use of the information to criminally investigate or prosecute any alcohol or drug abuse patient.[facility] the event this information is protected by the Federal Confidentiality of Alcohol and Drug Abuse Patient Records regulations: The Federal rules restrict any use of the information to criminally investigate or prosecute any alcohol or drug abuse patient.[facility] the event this information is protected by the Federal Confidentiality of Alcohol and Drug Abuse Patient Records regulations: The Federal rules restrict any use of the information to criminally investigate or prosecute any alcohol or drug abuse patient.[facility] the event this information is protected by the Federal Confidentiality of Alcohol and Drug Abuse Patient Records regulations: The Federal rules restrict any use of the information to criminally investigate or prosecute any alcohol or drug abuse patient.[facility] the event this information is protected by the Federal Confidentiality of Alcohol and Drug Abuse Patient Records regulations: The Federal rules restrict any use of the information to criminally investigate or prosecute any alcohol or drug abuse patient.[facility] Reason for Visit (unrecogniz ed section and content) Reason Comments Follow Up Established Patient Specialty Diagnoses / Procedures Referred By Contac t Referred To Contact XR IMAGING Diagnoses Other closed fracture of right patella with routine healing, subsequent encounter Procedures XR KNEE LIMITED 2V AP/LAT RIGHT X-RAY KNEE 2 VW Faviola Palmer MD [address] [address] Xr Imaging Referral ID Status Reason Start Date Expiration Date V isits Requested Visits Authorized [id number] Closed Auto-Generated Referral Patient Cleared - Qualified 100% FAS 01/24/2021 04/24/2021 99 99 Reason Comments Established Patient Follow Up Specialty Diagnoses / Procedures Referred By Contac t Referred To Contact Orthopedics / ORTHOPAEDIC SURGERY Diagnoses FU- RT KNEE INFECTION SX: 01/22/22 Procedures EST MD Spencer Lebron William J, MD [address] [place] [phone] Referral ID Status Reason Start Date Expiration Date V isits Requested Visits Authorized [id number] Closed Financial Clearance Required - Self Pay Patient Cleared - [facility] 09/05/2021 12/04/2021 1 1 Reason Comments Patient Update Reason Comments Established Patient Specialty Diagnoses / Procedures Referred By Contac t Referred To Contact Orthopedics / ORTHOPAEDIC SURGERY Diagnoses RT KNEE (POSSIBLE INFECTION) SX: 01/22/21 Procedures MD Spencer Ricardo William J, MD [address] [place] [phone] Referral ID Status Reason Start Date Expiration Date V isits Requested Visits Authorized [id number] Closed Financial Clearance Required - Self Pay Patient Cleared - [facility] 10/17/2021 01/15/2022 1 1 Reason Comments Follow Up Infection Specialty Diagnoses / Procedures Referred By Contac t Referred To Contact ORTHOPAEDIC SURGERY Diagnoses RT KNEE (KNEE INFECTION) SX: 01/22/21 Procedures RT KNEE (KNEE INFECTION) SX: 01/22/21 Faviola Palmer MD [address] [address] [facility] [place] [facility] [address] [place] [address] Referral ID Status Reason Start Date Expiration Date Visits Requested Visits Authorized [id number] Pending Review OON/Self Pay Override 10/28/2021 01/26/2022 1 1 Reason Comments Appointment Specialty Diagnoses / Procedures Referred By Contac t Referred To Contact PRE SURG TESTING [place] [facility] Diagnoses 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, initial encounter ([facility]) [T84.7XXA] Procedures OFFICE CONSULTATION NEW/ESTAB PATIENT 80 MIN INCISION, DEEP, WITH OPENING OF BONE CORTEX, FEMUR OR KNEE [[id number]] Faviola Palmer MD [address] [place] [phone] Pre Surg Testing [facility] [address] [place] [address] Referral ID Status Reason Start Date Expiration Date V isits Requested Visits Authorized [id number] Closed OON/Self Pay Override Financial Clearance Required - Self Pay Patient Cleared - [facility] Approved 01/16/2022 03/17/2022 1 1 Reason Comments Follow Up Post Op Specialty Diagnoses / Procedures Referred By Contac t Referred To Contact Orthopedics / ORTHOPAEDIC SURGERY Diagnoses PO Right knee, SX 02/12/2022 Procedures POST OP Self Faviola Palmer MD [address] [place] [address] Referral ID Status Reason Start Date Expiration Date V isits Requested Visits Authorized [id number] Closed Financial Clearance Not Required 02/27/2022 05/28/2022 1 1 Reason Comments knee pain and swelling, r Reason Comments Right Knee Pain Referred by Héctor whitaker Specialty Diagnoses / Procedures Referred By Luna barber Referred To Contact Orthopedics Diagnoses Acute pain of right knee Procedures CONSULT PANEL TO ORTHOPAEDICS OFFICE/OUTPATIENT [facility] 60 MINUTES Héctor Arroyo APRN.SENIOR DATA ANALYST [address] [place] [address] Phone: tel: fax: Referral ID Status Reason Start Date Expiration Date V isits Requested Visits Authorized [id number] Closed PCP Requested Referral 05/18/2024 05/18/2025 1 1 (unrecognized sect ion and content) No Status Records FoundNo Status Records Found INFORMATION SOURCE (unrecogn ized section and content) DATE CREATED AUTHOR 03/03/2022 [facility] DATE CREATED AUTHOR AUTHOR'S ORGANIZ ATION 05/24/2024 [facility] FOR RECORDS PERTAINING TO PATIENTS WHO ARE OR HAVE BEEN ENROLLED IN A CHEMICAL DEPENDENCY/SUBSTANCEABUSE PROGRAM, SOME INFORMATION MAY BE OMITTED. This clinical summary was aggregated from multiple sources. Caution should be exercised in using it in the provision of clinical care. This summary normalizes information from multiple sources, and as a consequence, information in this document may materially change the coding, format and clinical context of patient data. In addition, data may be omitted in some cases. CLINICAL DECISIONS SHOULD BE BASED ON THE PRIMARY CLINICAL RECORDS. [employer] provides no warranty or guarantee of the accuracy or completeness of information in this document.
== END 2024-11-05 16:20 | disposition home or self-care (01) ==
PROVIDERS: Emergency Provider Emergency Medicine; Visit Provider Emergency Medicine
DX: L03.114 Cellulitis of left upper limb (principal); L03.124 Acute lymphangitis of left upper limb; R03.0 Elevated blood-pressure reading, without diagnosis of hypertension
CPT/HCPCS: 80053; 85025; 96365; 96366; 99283; A4216; J0295